=== PATIENT | female | born 1935 | race Caucasian/White ===

== ENCOUNTER → 2017-01-16 | Outpatient (CLI) | payer MEDICARE, BC ==
[~2017-01-16] MED LIST: Gadobutrol 7.5 mMOL/7.5 ML SDV IVPUSH STA
--- NOTE | 2017-01-17 17:46 | MR ---
EXAM DATE: 01/16/17 PATIENT'S AGE: 81 Patient: SARA DUMONT Facility: [place], [place] Site . Site : 1935 Study: MRI Head W/ and W/O Cont [id number]/[id number] 7:05:33 PM Ordering Physician: Sole Gonsalez Final Report: Indication: 81-year-old female. unspecified abnormalities of gait and mobility unspecified urinary incontinence other amnesia Technique: Volumetric 3 plane T1, T2 axial, FLAIR axial, T2 axial, diffusion axial, ADC map axial, susceptibility weighted axial and volumetric 3 plane postcontrast T1 images are acquired. Findings: Susceptibility weighted images are moderate to markedly degraded by patient motion there is no restricted diffusion. There is no pathologic intracranial enhancement. Ventricles and cortical sulci are moderately prominent. Patchy nodular and confluent white matter T2 prolongation is present in both cerebral hemispheres. Patchy T2 prolongation is present in the [place]. Cerebellar hemispheres are unremarkable. Cerebellar tonsils normally are situated. Optic chiasm and pituitary all normal. Paranasal and mastoid air cells are unremarkable. Usual flow void is present in the [place]. Finds of bilateral cataract extraction. Impression: 1. No restricted diffusion, no pathologic intracranial enhancement and no acute intracranial finding. 2. Susceptibility sequences are moderate to markedly degraded by patient motion without convincing pathologic intracranial susceptibility. 3. Moderate atrophy and microvascular ischemic disease. Dictated by Todd Benjamin MD @ Jan 17 2017 5:19PM (Electronic Signature) Report Signed by Proxy and Original Signed Document filed in the Medical Record. [facility]
== END ==
LOC: MW.MRI 16:43
PROVIDERS: ATTEND Psychiatry & Neurology Neuromuscular Medicine
DX: R26.9 Unspecified abnormalities of gait and mobility (principal); R32 Unspecified urinary incontinence; R41.3 Other amnesia; I67.82 Cerebral ischemia
CPT/HCPCS: 70553; A9585

== ENCOUNTER → 2017-02-27 | Outpatient (CLI) | payer MEDICARE, BC | LOC: MW.CHNEURO 08:00 | PROVIDERS: ATTEND Psychiatry & Neurology Neuromuscular Medicine | DX: G25.2 Other specified forms of tremor (principal); R41.3 Other amnesia | CPT/HCPCS: 99214 ==

== ENCOUNTER 2018-10-31 12:26 | Observation (INO) | payer MEDICARE, BC ==
[2018-10-31] MEDS ORDERED: Sodium Chloride 0.9% 2.5 ML Syringe FLUSH PRN (12:31)
[2018-10-31] MEDS ORDERED: Sodium Chloride 0.9% 10 ML Syringe FLUSH PRN (12:31)
[2018-10-31] MEDS ORDERED: Albuterol/Ipratropium 3.0-0.5 MG/3 ML Neb Soln NEB ONE (12:35)
--- NOTE | 2018-10-31 12:43 | EDM.PDOC ---
ED HPI GENERAL MEDICAL PROBLEM - General Chief Complaint: Respiratory Problem Stated Complaint: SOB AND CHEST PAIN Time Seen by Provider: 10/31/18 12:35 Source of Information: Reports: Patient History Limitations: Reports: No Limitations - History of Present Illness INITIAL COMMENTS - FREE TEXT/NARRATIVE: HISTORY AND PHYSICAL: History of present illness: Patient is an 82-year-old female who presents to the emergency room today with complaints of chest pain. She states over the past several days she has had a chest cold with cough and shortness of breath. She does have a history of COPD and uses 4 L per nasal cannula routinely. Today she states that this "chest cold " now feels like a pressure to her mid chest. She denies any fever, chills, increased shortness of breath. Denies any abdominal pain, nausea, vomiting, diarrhea or constipation. Denies the pain radiating, diaphoresis, or reproducible pain. Patient also has a past medical history of type 2 diabetes Review of systems: As per history of present illness and below otherwise all systems reviewed and negative. Past medical history: As per history of present illness and as reviewed below otherwise noncontributory. Surgical history: As per history of present illness and as reviewed below otherwise noncontributory. Social history: See social history for further information Family history: As per history of present illness and as reviewed below otherwise noncontributory. Physical exam: General: Well-developed and well-nourished 82-year-old female. Alert and oriented. Nontoxic appearing and in no acute distress. HEENT: Atraumatic, normocephalic, pupils equal and reactive bilaterally, negative for conjunctival pallor or scleral icterus, mucous membranes moist, TMs normal bilaterally, throat clear, neck supple, nontender, trachea midline. No drooling or trismus noted. No meningeal signs. No hot potato voice noted. Lungs: Poor air exchange throughout with fine expiratory wheezing to the right posterior base, breath sounds equal bilaterally, chest nontender. Heart: S1S2, regular rate and rhythm without overt murmur Abdomen: Soft, nondistended, nontender. Negative for masses or hepatosplenomegaly. Negative for costovertebral tenderness. Pelvis: Stable nontender. Genitourinary: Deferred. Rectal: Deferred. Skin: Intact, warm, dry. No lesions or rashes noted. Extremities: Atraumatic, negative for cords or calf pain. Neurovascular unremarkable. Neuro: Awake, alert, oriented. Cranial nerves II through XII unremarkable. Cerebellum unremarkable. Motor and sensory unremarkable throughout. Exam nonfocal. Notes: EKG shows a normal sinus rhythm with a rate of 92. Unable to compare with any previous EKGs as there are none available. X-ray shows chronic interstitial prominence in the left basilar atelectasis or infiltrate. Diagnostics: CBC, CMP, BNP, troponin, EKG, one view chest, influenza, UC Therapeutics: Saline Lock, Rocephin IV Prescription: None Impression: Chest pain r/o IA Left basilar infiltrate UTI Plan: Observation admission to Med/Surg with telemetry per Dr Rose Definitive disposition and diagnosis as appropriate pending reevaluation and review of above. 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: Musculoskeletal History: Reports: None Neurological History: Reports: None Psychiatric History: Reports: None Endocrine/Metabolic History: Reports: Diabetes, Type II Hematologic History: Reports: None Immunologic History: Reports: None Oncologic (Cancer) History: Reports: None Dermatologic History: Reports: None - Infectious Disease History Infectious Disease History: Reports: Chicken Pox, Measles - Past Surgical History Head Surgeries/Procedures: Reports: None Female Surgical History: Reports: Hysterectomy Social & Family History - Family History Family Medical History: Noncontributory - Tobacco Use Smoking Status *Q: Former Smoker Years of Tobacco use: 40 Packs/Tins Daily: 2 Used Tobacco, but Quit: Yes Month/Year Tobacco Last Used: 17 yr - Caffeine Use Caffeine Use: Reports: None - Recreational Drug Use Recreational Drug Use: No ED ROS GENERAL - Review of Systems Review Of Systems: ROS reveals no pertinent complaints other than HPI. ED EXAM, GENERAL - Physical Exam Exam: See Below (See dictation) Course - Vital Signs Last Recorded V/S: Last Vital Signs Temp 97.9 F 10/31/18 12:29 Pulse 93 10/31/18 12:29 Resp 24 H 10/31/18 12:29 BP 144/65 H 10/31/18 12:29 Pulse Ox 96 10/31/18 12:46 - Orders/Labs/Meds Orders: Active Orders 24 hr Category Date Time Status Admission Status [Patient Status] [ADT] Stat ADT 10/31/18 14:00 Active Cardiac Monitoring [RC] . DIRECTED Care 10/31/18 14:00 Active EKG Documentation Completion [RC] STAT Care 10/31/18 12:31 Active RT Aerosol Therapy [RC] ASDIRECTED Care 10/31/18 12:35 Active CULTURE URINE [RM] Stat Lab 10/31/18 13:25 Received Sodium Chloride 0.9% [Saline Flush] Med 10/31/18 12:31 Active 10 ml FLUSH ASDIRECTED PRN Sodium Chloride 0.9% [Saline Flush] Med 10/31/18 12:31 Active 2.5 ml FLUSH ASDIRECTED PRN cefTRIAXone [Rocephin in Dextrose,Iso-Osm 1 GM/50 ML] 1 Med 10/31/18 13:59 Active gm Premix Bag 1 bag IV ONETIME Saline Lock Insert [OM.PC] Stat Oth 10/31/18 12:31 Ordered Medication Orders Ceftriaxone Sodium/Dextrose 1 (gm/ Premix) 50 mls @ 100 mls/hr IV ONETIME ONE Stop: 10/31/18 14:28 Sodium Chloride (Saline Flush) 10 ml FLUSH ASDIRECTED PRN PRN Reason: Keep Vein Open Sodium Chloride (Saline Flush) 2.5 ml FLUSH ASDIRECTED PRN PRN Reason: Keep Vein Open Labs: Laboratory Tests 10/31/18 10/31/18 10/31/18 Range/Units 12:42 12:42 12:42 WBC 8.12 (4.0-11.0) K/uL RBC 4.02 L (4.30-5.90) M/uL Hgb 12.1 (12.0-16.0) g/dL Hct 38.5 (36.0-46.0) % MCV 95.8 (80.0-98.0) fL MCH 30.1 (27.0-32.0) pg MCHC 31.4 (31.0-37.0) g/dL RDW Std Deviation 51.2 (28.0-62.0) fl RDW Coeff of Fernanda 15 (11.0-15.0) % Plt Count 264 (150-400) K/uL MPV 9.20 (7.40-12.00) fL Neut % (Auto) 63.1 (48.0-80.0) % Lymph % (Auto) 19.6 (16.0-40.0) % [place] % (Auto) 12.6 (0.0-15.0) % Eos % (Auto) 4.2 (0.0-7.0) % Baso % (Auto) 0.5 (0.0-1.5) % Neut # (Auto) 5.1 (1.4-5.7) K/uL Lymph # (Auto) 1.6 (0.6-2.4) K/uL [place] # (Auto) 1.0 H (0.0-0.8) K/uL Eos # (Auto) 0.3 (0.0-0.7) K/uL Baso # (Auto) 0.0 (0.0-0.1) K/uL Nucleated RBC % 0.0 /100WBC Nucleated RBCs # 0 K/uL Sodium 141 (136-145) mmol/L Potassium 4.0 (3.5-5.1) mmol/L Chloride 104 (98-107) mmol/L Carbon Dioxide 31.5 (21.0-32.0) mmol/L BUN 10 (7.0-18.0) mg/dL Creatinine 1.0 (0.6-1.0) mg/dL Est Cr Clr Drug Dosing 39.70 mL/min Estimated GFR (MDRD) 53.2 ml/min Glucose 137 H (74-106) mg/dL Calcium 9.4 (8.5-10.1) mg/dL Total Bilirubin 0.4 (0.2-1.0) mg/dL AST 17 (15-37) IU/L ALT 15 (14-63) IU/L Alkaline Phosphatase 106 (46-116) U/L Troponin I < 0.050 (0.000-0.056) ng/mL B-Natriuretic Peptide 13 (<100) PG/ML Total Protein 7.5 (6.4-8.2) g/dL Albumin 3.2 L (3.4-5.0) g/dL Globulin 4.3 H (2.6-4.0) g/dL Albumin/Globulin Ratio 0.7 L (0.9-1.6) Urine Color Urine Appearance Urine pH (5.0-8.0) Ur Specific [place] (1.001-1.035) Urine Protein (NEGATIVE) mg/dL Urine Glucose (UA) (NEGATIVE) mg/dL Urine Ketones (NEGATIVE) mg/dL Urine Occult Blood (NEGATIVE) Urine Nitrite (NEGATIVE) Urine Bilirubin (NEGATIVE) Urine Urobilinogen (<2.0) EU/dL Ur Leukocyte Esterase (NEGATIVE) Urine RBC (0-2/HPF) Urine WBC (0-5/HPF) Ur Epithelial Cells (NONE-FEW) Amorphous Sediment (NEGATIVE) Urine Bacteria (NEGATIVE) Urine Mucus (NONE-MOD) 10/31/18 Range/Units 13:25 WBC (4.0-11.0) K/uL RBC (4.30-5.90) M/uL Hgb (12.0-16.0) g/dL Hct (36.0-46.0) % MCV (80.0-98.0) fL MCH (27.0-32.0) pg MCHC (31.0-37.0) g/dL RDW Std Deviation (28.0-62.0) fl RDW Coeff of Fernanda (11.0-15.0) % Plt Count (150-400) K/uL MPV (7.40-12.00) fL Neut % (Auto) (48.0-80.0) % Lymph % (Auto) (16.0-40.0) % [place] % (Auto) (0.0-15.0) % Eos % (Auto) (0.0-7.0) % Baso % (Auto) (0.0-1.5) % Neut # (Auto) (1.4-5.7) K/uL Lymph # (Auto) (0.6-2.4) K/uL [place] # (Auto) (0.0-0.8) K/uL Eos # (Auto) (0.0-0.7) K/uL Baso # (Auto) (0.0-0.1) K/uL Nucleated RBC % /100WBC Nucleated RBCs # K/uL Sodium (136-145) mmol/L Potassium (3.5-5.1) mmol/L Chloride (98-107) mmol/L Carbon Dioxide (21.0-32.0) mmol/L BUN (7.0-18.0) mg/dL Creatinine (0.6-1.0) mg/dL Est Cr Clr Drug Dosing mL/min Estimated GFR (MDRD) ml/min Glucose (74-106) mg/dL Calcium (8.5-10.1) mg/dL Total Bilirubin (0.2-1.0) mg/dL AST (15-37) IU/L ALT (14-63) IU/L Alkaline Phosphatase (46-116) U/L Troponin I (0.000-0.056) ng/mL B-Natriuretic Peptide (<100) PG/ML Total Protein (6.4-8.2) g/dL Albumin (3.4-5.0) g/dL Globulin (2.6-4.0) g/dL Albumin/Globulin Ratio (0.9-1.6) Urine Color YELLOW Urine Appearance SLT CLOUDY Urine pH 7.0 (5.0-8.0) Ur Specific [place] 1.010 (1.001-1.035) Urine Protein NEGATIVE (NEGATIVE) mg/dL Urine Glucose (UA) NEGATIVE (NEGATIVE) mg/dL Urine Ketones NEGATIVE (NEGATIVE) mg/dL Urine Occult Blood TRACE-INTACT H (NEGATIVE) Urine Nitrite POSITIVE H (NEGATIVE) Urine Bilirubin NEGATIVE (NEGATIVE) Urine Urobilinogen 0.2 (<2.0) EU/dL Ur Leukocyte Esterase LARGE H (NEGATIVE) Urine RBC 1-2 (0-2/HPF) Urine WBC 35-42 (0-5/HPF) Ur Epithelial Cells FEW (NONE-FEW) Amorphous Sediment FEW (NEGATIVE) Urine Bacteria 2+ H (NEGATIVE) Urine Mucus FEW (NONE-MOD) Meds: Medications Generic Name Dose Route Start Last Admin Trade Name Freq PRN Reason Stop Dose Admin Ceftriaxone Sodium/Dextrose 1 50 mls @ 100 mls/hr 10/31/18 13:59 gm/ Premix IV 10/31/18 14:28 ONETIME ONE Sodium Chloride 10 ml 10/31/18 12:31 Saline Flush FLUSH ASDIRECTED PRN Keep Vein Open Sodium Chloride 2.5 ml 10/31/18 12:31 Saline Flush FLUSH ASDIRECTED PRN Keep Vein Open Discontinued Medications Generic Name Dose Route Start Last Admin Trade Name Freq PRN Reason Stop Dose Admin Albuterol/Ipratropium 3 ml 10/31/18 12:35 10/31/18 12:45 Duoneb 3.0-0.5 Mg/3 Ml NEB 10/31/18 12:36 3 ml ONETIME ONE Administration Departure - Departure Time of Disposition: 14:15 Disposition: Refer to Observation Clinical Impression: Chest pain, rule out acute myocardial infarction, Infiltrate of left lung present on chest x-ray Urinary tract infection Qualifiers: Urinary tract infection type: acute cystitis Hematuria presence: without hematuria Qualified Code(s): N30.00 - Acute cystitis without hematuria - Discharge Information Referrals: Willam Hines MD [Primary Care Provider] - Forms: ED Department Discharge - My Orders Last 24 Hours: My Active Orders 10/31/18 12:31 EKG Documentation Completion [RC] STAT Sodium Chloride 0.9% [Saline Flush] 10 ml FLUSH ASDIRECTED PRN Sodium Chloride 0.9% [Saline Flush] 2.5 ml FLUSH ASDIRECTED PRN Saline Lock Insert [OM.PC] Stat 10/31/18 12:35 RT Aerosol Therapy [RC] ASDIRECTED 10/31/18 13:25 CULTURE URINE [RM] Stat 10/31/18 13:59 cefTRIAXone [Rocephin in Dextrose,Iso-Osm 1 GM/50 ML] 1 gm Premix Bag 1 bag IV ONETIME 10/31/18 14:00 Admission Status [Patient Status] [ADT] Stat Cardiac Monitoring [RC] . DIRECTED - Assessment/Plan Last 24 Hours: My Active Orders 10/31/18 12:31 EKG Documentation Completion [RC] STAT Sodium Chloride 0.9% [Saline Flush] 10 ml FLUSH ASDIRECTED PRN Sodium Chloride 0.9% [Saline Flush] 2.5 ml FLUSH ASDIRECTED PRN Saline Lock Insert [OM.PC] Stat 10/31/18 12:35 RT Aerosol Therapy [RC] ASDIRECTED 10/31/18 13:25 CULTURE URINE [RM] Stat 10/31/18 13:59 cefTRIAXone [Rocephin in Dextrose,Iso-Osm 1 GM/50 ML] 1 gm Premix Bag 1 bag IV ONETIME 10/31/18 14:00 Admission Status [Patient Status] [ADT] Stat Cardiac Monitoring [RC] . DIRECTED
[2018-10-31 13:34] LABS: CHLORIDE,CL 104 mmol/L (98-107); SODIUM,NA 141 mmol/L (136-145)
--- NOTE | 2018-10-31 13:39 | CR ---
EXAMINATION: Portable chest radiograph. HISTORY: Chest pain. FINDINGS: The trachea is midline. The cardiomediastinal silhouette is within normal limits. There is a moderate interstitial prominence. Mild left basilar infiltrate and/or atelectasis without a significant pleural effusion. No pneumothorax. Osseous structures appear unremarkable. IMPRESSION: 1. Chronic interstitial prominence and left basilar atelectasis and/or infiltrate.
[2018-10-31] MEDS ORDERED: cefTRIAXone 1 GM in Premix Bag 1 BAG IV ONE (13:59)
[2018-10-31] MEDS ORDERED: Acetaminophen 325 MG Tab PO PRN (15:20)
[2018-10-31] MEDS ORDERED: Ondansetron 4 MG/2 ML SDV IVPUSH PRN (15:20)
[2018-10-31] MEDS ORDERED: Azithromycin 250 MG Tab PO SCH (15:30)
--- NOTE | 2018-10-31 15:30 | PCM.HP ---
<Bita Harvey M - Last Filed: 10/31/18 15:59> H&P History of Present Illness - General Date of Service: 10/31/18 Admit Problem/Dx: Admission Diagnosis/Problem Admission Diagnosis/Problem Chest pain, rule out acute myocardial infarction Source of Information: Patient History Limitations: Reports: No Limitations - History of Present Illness Initial Comments - Free Text/Narative: THis 82 year old female with pmh of HTN, DM type 2, COPD, oxygen dependent, depression and CHF presented to the ED with concerns of chest pressure which started initially on Sunday. She has a cold and felti t was related to the cold so she didn't do much. She reports it continued and felt she should be evaluated. She denies radiation of the pain, feels like it was center of her chest. Denies worsening shortness of breath diaphoresis or nausea. She reports not feeling well with hot flashes and chills at home, no tested temperatures. Reports cough, but non productive. No increase in oxygen requirements, normally on 4 L NC. No abdominal pain, diarrhea, constipation or urinary symptoms. She reports she is incontinent of urine, which is baseline over the last couple years and wears a brief. She denies current tobacco use, quit 20 years ago, no alcohol use and no recreational drug use. In the ED labwork WNL. UA revealed UTI, UC pending. Influenza negative. CXR reveals chronic interstitial prominence and left basilar atelectasis and or infiltrate. Troponin negative. EKG revealed SR with no acute ST changes. She will be admitted for atypical chest pain, UTI and CAP. PCP Dr Hines. - Related Data Allergies/Adverse Reactions: Allergies Allergy/AdvReac Type Severity Reaction Status Date / Time No Known Allergies Allergy Verified 10/31/18 12:29 Home Medications: Home Meds Albuterol/Ipratropium [DuoNeb 3.0-0.5 MG/3 ML] 3 ml INH Q6H PRN 10/31/18 [ History] Budesonide/Formoterol Fumarate [Symbicort 160-4.5 Mcg Inhaler] 2 puff IH BID [History] Calcium Carbonate/Vitamin D3 [Calcium 250+D] 1 each PO DAILY 10/31/18 [History] Cholecalciferol (Vitamin D3) [Vitamin D3] 5,000 unit PO DAILY 10/31/18 [History] Furosemide 40 mg PO BID@0800,1400 10/31/18 [History] Latanoprost 1 drop OP BEDTIME 10/31/18 [History] Metoprolol Succinate 50 mg PO DAILY 10/31/18 [History] OLANZapine [Olanzapine] 5 mg PO BEDTIME 10/31/18 [History] Potassium Chloride [Klor-Con M20] 20 meq PO BIDMEALS 10/31/18 [History] Sertraline [Zoloft] 150 mg PO DAILY 10/31/18 [History] Simvastatin [Zocor] 20 mg PO BEDTIME 10/31/18 [History] Vit A/Vit C/Vit E/Zinc/Copper [Preservision] 1 each PO BID 10/31/18 [History] metFORMIN [Glucophage] 1,000 mg PO BIDMEALS 10/31/18 [History] predniSONE [Prednisone] 2.5 mg PO BIDMEALS 10/31/18 [History] traZODone HCl [Trazodone HCl] 50 mg PO BEDTIME 10/31/18 [History] Cefdinir 300 mg PO BID #20 capsule 11/01/18 [Rx] Past Medical History HEENT History: Reports: Impaired Vision Cardiovascular History: Reports: High Cholesterol, Hypertension, SOB on Exertion. Denies: Afib, Blood Clots/VTE/DVT, CAD, GA, Pulmonary Hypertension Respiratory History: Reports: COPD, Other (See Below) (oxygen dependent, 4 L NC) Gastrointestinal History: Reports: None. Denies: GERD, GI Bleed Genitourinary History: Reports: Urinary Incontinence. Denies: Chronic Renal Insuffiency MANAGER AEROSPACE History: Reports: Musculoskeletal History: Reports: None Neurological History: Reports: None. Denies: CVA, TIA Psychiatric History: Reports: Depression Endocrine/Metabolic History: Reports: Diabetes, Type II, Obesity/BMI 30+ Hematologic History: Reports: None Immunologic History: Reports: None Oncologic (Cancer) History: Reports: None Dermatologic History: Reports: None - Infectious Disease History Infectious Disease History: Reports: Chicken Pox, Measles - Past Surgical History Head Surgeries/Procedures: Reports: None Female Surgical History: Reports: Hysterectomy Social & Family History - Family History Family Medical History: Noncontributory - Tobacco Use Smoking Status *Q: Former Smoker Years of Tobacco use: 40 Packs/Tins Daily: 2 Used Tobacco, but Quit: Yes Month/Year Tobacco Last Used: 17 yr - Caffeine Use Caffeine Use: Reports: None - Recreational Drug Use Recreational Drug Use: No - Living Situation & Occupation Occupation: Retired H&P Review of Systems - Review of Systems: Review Of Systems: See Below General: Reports: Fever, Chills, Malaise, Fatigue HEENT: Reports: Sinus Congestion. Denies: Headaches, Hearing Changes, Visual Changes Pulmonary: Reports: Shortness of Breath, Cough, Sputum. Denies: Hemoptysis Cardiovascular: Reports: Chest Pain (no longer there), Dyspnea on Exertion. Denies: Lightheadedness, Syncope Gastrointestinal: Reports: No Symptoms. Denies: Abdominal Pain, Black Stool, Bloody Stool, Nausea, Vomiting Genitourinary: Reports: Incontinence (not a new finding). Denies: Dysuria, Frequency, Pain, Urgency Musculoskeletal: Reports: No Symptoms Skin: Reports: No Symptoms Psychiatric: Reports: No Symptoms Neurological: Reports: No Symptoms. Denies: Confusion Hematologic/Lymphatic: Reports: No Symptoms Immunologic: Reports: No Symptoms Exam - Exam Exam: See Below - Vital Signs Vital Signs: Last Vital Signs Temp 97.9 F 10/31/18 15:25 Pulse 90 10/31/18 15:25 Resp 24 H 10/31/18 15:25 BP 114/63 10/31/18 15:25 Pulse Ox 95 10/31/18 15:25 Weight: 99.79 kg - Exam Quality Assessment: Supplemental Oxygen General: Alert, Oriented, Cooperative HEENT: Conjunctiva Clear, Mucosa Moist & [place], Posterior Pharynx Clear Neck: Supple, Trachea Midline Lungs: Normal Respiratory Effort, Wheezing Cardiovascular: Regular Rate, Regular Rhythm GI/Abdominal Exam: Normal Bowel Sounds, Soft, Non-Tender Extremities: Normal Inspection, Normal Range of Motion, Pedal Edema (+2 edema BLE) Neuro Extensive - Mental Status: Alert, Oriented x3, Normal Mood/Affect Neuro Extensive - Motor, Sensory, Reflexes: CN II-XII Intact Psychiatric: Alert, Normal Affect, Normal Mood - Patient Data Lab Results Last 24 hrs: Laboratory Results - last 24 hr 10/31/18 10/31/18 10/31/18 Range/Units 12:42 12:42 12:42 WBC 8.12 (4.0-11.0) K/uL RBC 4.02 L (4.30-5.90) M/uL Hgb 12.1 (12.0-16.0) g/dL Hct 38.5 (36.0-46.0) % MCV 95.8 (80.0-98.0) fL MCH 30.1 (27.0-32.0) pg MCHC 31.4 (31.0-37.0) g/dL RDW Std Deviation 51.2 (28.0-62.0) fl RDW Coeff of Fernanda 15 (11.0-15.0) % Plt Count 264 (150-400) K/uL MPV 9.20 (7.40-12.00) fL Neut % (Auto) 63.1 (48.0-80.0) % Lymph % (Auto) 19.6 (16.0-40.0) % [place] % (Auto) 12.6 (0.0-15.0) % Eos % (Auto) 4.2 (0.0-7.0) % Baso % (Auto) 0.5 (0.0-1.5) % Neut # (Auto) 5.1 (1.4-5.7) K/uL Lymph # (Auto) 1.6 (0.6-2.4) K/uL [place] # (Auto) 1.0 H (0.0-0.8) K/uL Eos # (Auto) 0.3 (0.0-0.7) K/uL Baso # (Auto) 0.0 (0.0-0.1) K/uL Nucleated RBC % 0.0 /100WBC Nucleated RBCs # 0 K/uL Sodium 141 (136-145) mmol/L Potassium 4.0 (3.5-5.1) mmol/L Chloride 104 (98-107) mmol/L Carbon Dioxide 31.5 (21.0-32.0) mmol/L BUN 10 (7.0-18.0) mg/dL Creatinine 1.0 (0.6-1.0) mg/dL Est Cr Clr Drug Dosing 39.70 mL/min Estimated GFR (MDRD) 53.2 ml/min Glucose 137 H (74-106) mg/dL Calcium 9.4 (8.5-10.1) mg/dL Total Bilirubin 0.4 (0.2-1.0) mg/dL AST 17 (15-37) IU/L ALT 15 (14-63) IU/L Alkaline Phosphatase 106 (46-116) U/L Troponin I < 0.050 (0.000-0.056) ng/mL B-Natriuretic Peptide 13 (<100) PG/ML Total Protein 7.5 (6.4-8.2) g/dL Albumin 3.2 L (3.4-5.0) g/dL Globulin 4.3 H (2.6-4.0) g/dL Albumin/Globulin Ratio 0.7 L (0.9-1.6) Urine Color Urine Appearance Urine pH (5.0-8.0) Ur Specific [place] (1.001-1.035) Urine Protein (NEGATIVE) mg/dL Urine Glucose (UA) (NEGATIVE) mg/dL Urine Ketones (NEGATIVE) mg/dL Urine Occult Blood (NEGATIVE) Urine Nitrite (NEGATIVE) Urine Bilirubin (NEGATIVE) Urine Urobilinogen (<2.0) EU/dL Ur Leukocyte Esterase (NEGATIVE) Urine RBC (0-2/HPF) Urine WBC (0-5/HPF) Ur Epithelial Cells (NONE-FEW) Amorphous Sediment (NEGATIVE) Urine Bacteria (NEGATIVE) Urine Mucus (NONE-MOD) 10/31/18 Range/Units 13:25 WBC (4.0-11.0) K/uL RBC (4.30-5.90) M/uL Hgb (12.0-16.0) g/dL Hct (36.0-46.0) % MCV (80.0-98.0) fL MCH (27.0-32.0) pg MCHC (31.0-37.0) g/dL RDW Std Deviation (28.0-62.0) fl RDW Coeff of Fernanda (11.0-15.0) % Plt Count (150-400) K/uL MPV (7.40-12.00) fL Neut % (Auto) (48.0-80.0) % Lymph % (Auto) (16.0-40.0) % [place] % (Auto) (0.0-15.0) % Eos % (Auto) (0.0-7.0) % Baso % (Auto) (0.0-1.5) % Neut # (Auto) (1.4-5.7) K/uL Lymph # (Auto) (0.6-2.4) K/uL [place] # (Auto) (0.0-0.8) K/uL Eos # (Auto) (0.0-0.7) K/uL Baso # (Auto) (0.0-0.1) K/uL Nucleated RBC % /100WBC Nucleated RBCs # K/uL Sodium (136-145) mmol/L Potassium (3.5-5.1) mmol/L Chloride (98-107) mmol/L Carbon Dioxide (21.0-32.0) mmol/L BUN (7.0-18.0) mg/dL Creatinine (0.6-1.0) mg/dL Est Cr Clr Drug Dosing mL/min Estimated GFR (MDRD) ml/min Glucose (74-106) mg/dL Calcium (8.5-10.1) mg/dL Total Bilirubin (0.2-1.0) mg/dL AST (15-37) IU/L ALT (14-63) IU/L Alkaline Phosphatase (46-116) U/L Troponin I (0.000-0.056) ng/mL B-Natriuretic Peptide (<100) PG/ML Total Protein (6.4-8.2) g/dL Albumin (3.4-5.0) g/dL Globulin (2.6-4.0) g/dL Albumin/Globulin Ratio (0.9-1.6) Urine Color YELLOW Urine Appearance SLT CLOUDY Urine pH 7.0 (5.0-8.0) Ur Specific [place] 1.010 (1.001-1.035) Urine Protein NEGATIVE (NEGATIVE) mg/dL Urine Glucose (UA) NEGATIVE (NEGATIVE) mg/dL Urine Ketones NEGATIVE (NEGATIVE) mg/dL Urine Occult Blood TRACE-INTACT H (NEGATIVE) Urine Nitrite POSITIVE H (NEGATIVE) Urine Bilirubin NEGATIVE (NEGATIVE) Urine Urobilinogen 0.2 (<2.0) EU/dL Ur Leukocyte Esterase LARGE H (NEGATIVE) Urine RBC 1-2 (0-2/HPF) Urine WBC 35-42 (0-5/HPF) Ur Epithelial Cells FEW (NONE-FEW) Amorphous Sediment FEW (NEGATIVE) Urine Bacteria 2+ H (NEGATIVE) Urine Mucus FEW (NONE-MOD) Result Diagrams: 10/31/18 12:42 10/31/18 12:42 [place] Results Last 24 hrs: Microbiology 10/31/18 13:21 Influenza Type A Antigen Screen - Final Nasopharyngeal Swab NEGATIVE INFLUENZA A VIRUS AG Influenza Type B Antigen Screen - Final NEGATIVE INFLUENZA B VIRUS AG *Q Meaningful Use (ADM) - VTE Risk Assess *Q Each Risk Factor Represents 1 Point: Swollen Legs, Current, Obesity ( BMI > 25 kg/m2), Congestive heart failure (CHF), Serious lung disease including pneumonia , Abnormal Pulmonary Function (COPD) Total Score 1 Point Risk Factors: 5 Each Risk Factor Represents 2 Points: None Total Score 2 Point Risk Factors: 0 Each Risk Factor Represents 3 Points: Age 75 Years or Greater Total Score 3 Point Risk Factors: 3 Each Risk Factor Represents 5 Points: None Total Score 5 Point Risk Factors: 0 Venous Thromboembolism Risk Factor Score *Q: 8 - Problem List (1) Chest pain, rule out acute myocardial infarction SNOMED Code(s): 48957909 ICD Code: R07.9 - CHEST PAIN, UNSPECIFIED Status: Acute Current Visit: Yes (2) Urinary tract infection SNOMED Code(s): 75724030 ICD Code: N39.0 - URINARY TRACT INFECTION, SITE NOT SPECIFIED Status: Acute Current Visit: Yes Qualifiers: Urinary tract infection type: acute cystitis Hematuria presence: without hematuria Qualified Code(s): N30.00 - Acute cystitis without hematuria (3) CAP (community acquired pneumonia) SNOMED Code(s): 948301314 ICD Code: J18.9 - PNEUMONIA, UNSPECIFIED ORGANISM Status: Acute Current Visit: Yes (4) COPD (chronic obstructive pulmonary disease) SNOMED Code(s): 42821085 ICD Code: J44.9 - CHRONIC OBSTRUCTIVE PULMONARY DISEASE, UNSPECIFIED Status : Chronic Current Visit: Yes (5) DM type 2 (diabetes mellitus, type 2) SNOMED Code(s): 08214541 ICD Code: E11.9 - TYPE 2 DIABETES MELLITUS WITHOUT COMPLICATIONS Status: Chronic Current Visit: Yes Qualifiers: Diabetes mellitus senior living insulin use: without long term care administrator use Diabetes mellitus complication status: without complication Qualified Code(s): E11.9 - Type 2 diabetes mellitus without complications (6) CHF (congestive heart failure) SNOMED Code(s): 25826200 ICD Code: I50.9 - HEART FAILURE, UNSPECIFIED Status: Chronic Current Visit: Yes Qualifiers: Heart failure type: unspecified Heart failure chronicity: chronic Qualified Code(s): I50.9 - Heart failure, unspecified (7) Depression SNOMED Code(s): 19206875 ICD Code: F32.9 - MAJOR DEPRESSIVE DISORDER, SINGLE EPISODE, UNSPECIFIED Status: Chronic Current Visit: Yes (8) Hyperlipidemia SNOMED Code(s): 02899438 ICD Code: E78.5 - HYPERLIPIDEMIA, UNSPECIFIED Status: Chronic Current Visit: Yes (9) Oxygen dependent SNOMED Code(s): 709289935183 ICD Code: Z99.81 - DEPENDENCE ON SUPPLEMENTAL OXYGEN Status: Chronic Current Visit: Yes Problem List Initiated/Reviewed/Updated: Yes Orders Last 24hrs: Active Orders 24 hr Category Date Time Status Admission Status [Patient Status] [ADT] Stat ADT 10/31/18 14:00 Active Cardiac Monitoring [RC] . DIRECTED Care 10/31/18 14:00 Active EKG Documentation Completion [RC] STAT Care 10/31/18 12:31 Active Intake and Output [RC] QSHIFT Care 10/31/18 15:21 Ordered Oxygen Therapy [RC] PRN Care 10/31/18 15:20 Ordered RT Aerosol Therapy [RC] ASDIRECTED Care 10/31/18 12:35 Active RT Aerosol Therapy [RC] ASDIRECTED Care 10/31/18 15:22 Ordered Telemetry Monitoring [Cardiac Monitoring] [RC] . Care 10/31/18 15:28 Ordered DIRECTED Up With Assistance [RC] ASDIRECTED Care 10/31/18 15:20 Ordered VTE/DVT Education [RC] PER UNIT ROUTINE Care 10/31/18 15:20 Ordered Vital Signs [RC] Q4H Care 10/31/18 15:20 Ordered Consistent Carbohydrate Diet [DIET] Diet 10/31/18 Lunch Ordered BASIC METABOLIC PANEL,BMP [CHEM] AM Lab 11/01/18 05:11 Ordered CBC WITH AUTO DIFF [HEME] AM Lab 11/01/18 05:11 Ordered CULTURE SPUTUM + SMEAR [RM] Stat Lab 10/31/18 15:20 Ordered CULTURE URINE [RM] Stat Lab 10/31/18 13:25 Received GLYCOSYLATED HEMOGLOBIN,HGBA1C [CHEM] Routine Lab 10/31/18 15:29 Ordered LIPID PANEL [CHEM] AM Lab 11/01/18 05:11 Ordered TROPONIN I [CHEM] Q6H Lab 10/31/18 18:45 Ordered TROPONIN I [CHEM] Q6H Lab 11/01/18 00:45 Ordered Acetaminophen [Tylenol] Med 10/31/18 15:20 Ordered 650 mg PO Q4H PRN Albuterol/Ipratropium [DuoNeb 3.0-0.5 MG/3 ML] Med 10/31/18 18:00 Ordered 3 ml NEB Q4HRRT Azithromycin [Zithromax] Med 10/31/18 15:30 Ordered 500 mg PO Q24H Heparin Sodium Med 10/31/18 15:30 Ordered 5,000 units SUBCUT Q12H Insulin Aspart [NovoLOG] Med 10/31/18 17:00 Ordered See Protocol SUBCUT TIDAC Ondansetron [Zofran] Med 10/31/18 15:20 Ordered 4 mg IVPUSH Q4H PRN Sodium Chloride 0.9% [Saline Flush] Med 10/31/18 12:31 Active 10 ml FLUSH ASDIRECTED PRN Sodium Chloride 0.9% [Saline Flush] Med 10/31/18 12:31 Active 2.5 ml FLUSH ASDIRECTED PRN cefTRIAXone [Rocephin in Dextrose,Iso-Osm 1 GM/50 ML] 1 Med 11/01/18 13:00 Ordered gm Premix Bag 1 bag IV Q24H Saline Lock Insert [OM.PC] Stat Oth 10/31/18 12:31 Ordered Resuscitation Status Routine Resus Stat 10/31/18 15:20 Ordered Medication Orders Acetaminophen (Tylenol) 650 mg PO Q4H PRN PRN Reason: Pain (Mild 1-3)/fever Albuterol/Ipratropium (Duoneb 3.0-0.5 Mg/3 Ml) 3 ml NEB Q4HRRT TEJAL Azithromycin (Zithromax) 500 mg PO Q24H TEJAL Heparin Sodium (Porcine) (Heparin Sodium) 5,000 units SUBCUT Q12H TEJAL Ceftriaxone Sodium/Dextrose 1 (gm/ Premix) 50 mls @ 100 mls/hr IV Q24H TEJAL Insulin Aspart (Novolog) 0 unit SUBCUT TIDAC TEJAL; Protocol Ondansetron HCl (Zofran) 4 mg IVPUSH Q4H PRN PRN Reason: Nausea Sodium Chloride (Saline Flush) 10 ml FLUSH ASDIRECTED PRN PRN Reason: Keep Vein Open Sodium Chloride (Saline Flush) 2.5 ml FLUSH ASDIRECTED PRN PRN Reason: Keep Vein Open Assessment/Plan Comment:: THis 82 year old female admitted with atypical chest pain, UTI and CAP 1. Atypical chest pain: Will monitor on telemetry. Trend troponins. Will monitor Lipid panel and A1c. Pain is likely related to URI and pneumonia 2. UTI: UC pending. Continue Rocephin. 3. CAP: Sputum culture pending if able to obtain. Add Azithromycin to Rocephin. Duonebs scheduled 4. COPD: Stable, no exacerbation suspected, no excessive wheezing and no increase in oxygen requirement. Continue Oxygen at 4 l NC as per home. Continue Symbicort. 5. HTN/CHF: Continue Metoprolol and Lasix. Both stable at this time. 6. DM Type 2: Hold Metformin. Novolog SSI with meals. VTE prophylaxis: Heparin Q12hr Dispo: 1 day <Rishi Rose - Last Filed: 11/01/18 10:32> H&P History of Present Illness - General Admit Problem/Dx: Admission Diagnosis/Problem Admission Diagnosis/Problem Chest pain, rule out acute myocardial infarction I have examined the patient independently of Bita Harvey CNP. I have discussed the case with her. I agree with the assessment and plan of care for this patient as outlined by her. Please see orders. Chest Pain Score (Numeric/FACES): 0 Exam - Vital Signs Vital Signs: Last Vital Signs Temp 36.8 C 11/01/18 08:17 Pulse 101 H 11/01/18 08:17 Resp 18 11/01/18 08:17 BP 120/60 11/01/18 08:17 Pulse Ox 93 L 11/01/18 08:17 - Patient Data Lab Results Last 24 hrs: Laboratory Results - last 24 hr 10/31/18 10/31/18 10/31/18 Range/Units 12:42 12:42 12:42 WBC 8.12 (4.0-11.0) K/uL RBC 4.02 L (4.30-5.90) M/uL Hgb 12.1 (12.0-16.0) g/dL Hct 38.5 (36.0-46.0) % MCV 95.8 (80.0-98.0) fL MCH 30.1 (27.0-32.0) pg MCHC 31.4 (31.0-37.0) g/dL RDW Std Deviation 51.2 (28.0-62.0) fl RDW Coeff of Fernanda 15 (11.0-15.0) % Plt Count 264 (150-400) K/uL MPV 9.20 (7.40-12.00) fL Neut % (Auto) 63.1 (48.0-80.0) % Lymph % (Auto) 19.6 (16.0-40.0) % [place] % (Auto) 12.6 (0.0-15.0) % Eos % (Auto) 4.2 (0.0-7.0) % Baso % (Auto) 0.5 (0.0-1.5) % Neut # (Auto) 5.1 (1.4-5.7) K/uL Lymph # (Auto) 1.6 (0.6-2.4) K/uL [place] # (Auto) 1.0 H (0.0-0.8) K/uL Eos # (Auto) 0.3 (0.0-0.7) K/uL Baso # (Auto) 0.0 (0.0-0.1) K/uL Nucleated RBC % 0.0 /100WBC Nucleated RBCs # 0 K/uL Sodium 141 (136-145) mmol/L Potassium 4.0 (3.5-5.1) mmol/L Chloride 104 (98-107) mmol/L Carbon Dioxide 31.5 (21.0-32.0) mmol/L BUN 10 (7.0-18.0) mg/dL Creatinine 1.0 (0.6-1.0) mg/dL Est Cr Clr Drug Dosing 39.70 mL/min Estimated GFR (MDRD) 53.2 ml/min Glucose 137 H (74-106) mg/dL POC Glucose (60-110) mg/dL Hemoglobin A1c (4.5-6.2) % Calcium 9.4 (8.5-10.1) mg/dL Total Bilirubin 0.4 (0.2-1.0) mg/dL AST 17 (15-37) IU/L ALT 15 (14-63) IU/L Alkaline Phosphatase 106 (46-116) U/L Troponin I < 0.050 (0.000-0.056) ng/mL B-Natriuretic Peptide 13 (<100) PG/ML Total Protein 7.5 (6.4-8.2) g/dL Albumin 3.2 L (3.4-5.0) g/dL Globulin 4.3 H (2.6-4.0) g/dL Albumin/Globulin Ratio 0.7 L (0.9-1.6) Triglycerides (0-200) mg/dL Cholesterol (50-200) mg/dL LDL Cholesterol, Calc (60-180) mg/dL VLDL Cholesterol (5-55) mg/dL HDL Cholesterol (40-60) mg/dL Cholesterol/HDL Ratio (3.3-6.0) Urine Color Urine Appearance Urine pH (5.0-8.0) Ur Specific [place] (1.001-1.035) Urine Protein (NEGATIVE) mg/dL Urine Glucose (UA) (NEGATIVE) mg/dL Urine Ketones (NEGATIVE) mg/dL Urine Occult Blood (NEGATIVE) Urine Nitrite (NEGATIVE) Urine Bilirubin (NEGATIVE) Urine Urobilinogen (<2.0) EU/dL Ur Leukocyte Esterase (NEGATIVE) Urine RBC (0-2/HPF) Urine WBC (0-5/HPF) Ur Epithelial Cells (NONE-FEW) Amorphous Sediment (NEGATIVE) Urine Bacteria (NEGATIVE) Urine Mucus (NONE-MOD) 10/31/18 10/31/18 10/31/18 Range/Units 13:25 15:29 16:48 WBC (4.0-11.0) K/uL RBC (4.30-5.90) M/uL Hgb (12.0-16.0) g/dL Hct (36.0-46.0) % MCV (80.0-98.0) fL MCH (27.0-32.0) pg MCHC (31.0-37.0) g/dL RDW Std Deviation (28.0-62.0) fl RDW Coeff of [place]anda (11.0-15.0) % Plt Count (150-400) K/uL MPV (7.40-12.00) fL Neut % (Auto) (48.0-80.0) % Lymph % (Auto) (16.0-40.0) % [place] % (Auto) (0.0-15.0) % Eos % (Auto) (0.0-7.0) % Baso % (Auto) (0.0-1.5) % Neut # (Auto) (1.4-5.7) K/uL Lymph # (Auto) (0.6-2.4) K/uL [place] # (Auto) (0.0-0.8) K/uL Eos # (Auto) (0.0-0.7) K/uL Baso # (Auto) (0.0-0.1) K/uL Nucleated RBC % /100WBC Nucleated RBCs # K/uL Sodium (136-145) mmol/L Potassium (3.5-5.1) mmol/L Chloride (98-107) mmol/L Carbon Dioxide (21.0-32.0) mmol/L BUN (7.0-18.0) mg/dL Creatinine (0.6-1.0) mg/dL Est Cr Clr Drug Dosing mL/min Estimated GFR (MDRD) ml/min Glucose (74-106) mg/dL POC Glucose (60-110) mg/dL Hemoglobin A1c 7.4 H (4.5-6.2) % Calcium (8.5-10.1) mg/dL Total Bilirubin (0.2-1.0) mg/dL AST (15-37) IU/L ALT (14-63) IU/L Alkaline Phosphatase (46-116) U/L Troponin I < 0.050 (0.000-0.056) ng/mL B-Natriuretic Peptide (<100) PG/ML Total Protein (6.4-8.2) g/dL Albumin (3.4-5.0) g/dL Globulin (2.6-4.0) g/dL Albumin/Globulin Ratio (0.9-1.6) Triglycerides (0-200) mg/dL Cholesterol (50-200) mg/dL LDL Cholesterol, Calc (60-180) mg/dL VLDL Cholesterol (5-55) mg/dL HDL Cholesterol (40-60) mg/dL Cholesterol/HDL Ratio (3.3-6.0) Urine Color YELLOW Urine Appearance SLT CLOUDY Urine pH 7.0 (5.0-8.0) Ur Specific [place] 1.010 (1.001-1.035) Urine Protein NEGATIVE (NEGATIVE) mg/dL Urine Glucose (UA) NEGATIVE (NEGATIVE) mg/dL Urine Ketones NEGATIVE (NEGATIVE) mg/dL Urine Occult Blood TRACE-INTACT H (NEGATIVE) Urine Nitrite POSITIVE H (NEGATIVE) Urine Bilirubin NEGATIVE (NEGATIVE) Urine Urobilinogen 0.2 (<2.0) EU/dL Ur Leukocyte Esterase LARGE H (NEGATIVE) Urine RBC 1-2 (0-2/HPF) Urine WBC 35-42 (0-5/HPF) Ur Epithelial Cells FEW (NONE-FEW) Amorphous Sediment FEW (NEGATIVE) Urine Bacteria 2+ H (NEGATIVE) Urine Mucus FEW (NONE-MOD) 10/31/18 11/01/18 11/01/18 Range/Units 17:32 01:00 04:55 WBC 8.99 (4.0-11.0) K/uL RBC 3.92 L (4.30-5.90) M/uL Hgb 11.9 L (12.0-16.0) g/dL Hct 37.6 (36.0-46.0) % MCV 95.9 (80.0-98.0) fL MCH 30.4 (27.0-32.0) pg MCHC 31.6 (31.0-37.0) g/dL RDW Std Deviation 51.8 (28.0-62.0) fl RDW Coeff of [place]anda 15 (11.0-15.0) % Plt Count 255 (150-400) K/uL MPV 9.40 (7.40-12.00) fL Neut % (Auto) 71.8 (48.0-80.0) % Lymph % (Auto) 16.0 (16.0-40.0) % [place] % (Auto) 9.2 (0.0-15.0) % Eos % (Auto) 2.7 (0.0-7.0) % Baso % (Auto) 0.3 (0.0-1.5) % Neut # (Auto) 6.5 H (1.4-5.7) K/uL Lymph # (Auto) 1.4 (0.6-2.4) K/uL [place] # (Auto) 0.8 (0.0-0.8) K/uL Eos # (Auto) 0.2 (0.0-0.7) K/uL Baso # (Auto) 0.0 (0.0-0.1) K/uL Nucleated RBC % 0.0 /100WBC Nucleated RBCs # 0 K/uL Sodium (136-145) mmol/L Potassium (3.5-5.1) mmol/L Chloride (98-107) mmol/L Carbon Dioxide (21.0-32.0) mmol/L BUN (7.0-18.0) mg/dL Creatinine (0.6-1.0) mg/dL Est Cr Clr Drug Dosing mL/min Estimated GFR (MDRD) ml/min Glucose (74-106) mg/dL POC Glucose 132 H (60-110) mg/dL Hemoglobin A1c (4.5-6.2) % Calcium (8.5-10.1) mg/dL Total Bilirubin (0.2-1.0) mg/dL AST (15-37) IU/L ALT (14-63) IU/L Alkaline Phosphatase (46-116) U/L Troponin I < 0.050 (0.000-0.056) ng/mL B-Natriuretic Peptide (<100) PG/ML Total Protein (6.4-8.2) g/dL Albumin (3.4-5.0) g/dL Globulin (2.6-4.0) g/dL Albumin/Globulin Ratio (0.9-1.6) Triglycerides (0-200) mg/dL Cholesterol (50-200) mg/dL LDL Cholesterol, Calc (60-180) mg/dL VLDL Cholesterol (5-55) mg/dL HDL Cholesterol (40-60) mg/dL Cholesterol/HDL Ratio (3.3-6.0) Urine Color Urine Appearance Urine pH (5.0-8.0) Ur Specific [place] (1.001-1.035) Urine Protein (NEGATIVE) mg/dL Urine Glucose (UA) (NEGATIVE) mg/dL Urine Ketones (NEGATIVE) mg/dL Urine Occult Blood (NEGATIVE) Urine Nitrite (NEGATIVE) Urine Bilirubin (NEGATIVE) Urine Urobilinogen (<2.0) EU/dL Ur Leukocyte Esterase (NEGATIVE) Urine RBC (0-2/HPF) Urine WBC (0-5/HPF) Ur Epithelial Cells (NONE-FEW) Amorphous Sediment (NEGATIVE) Urine Bacteria (NEGATIVE) Urine Mucus (NONE-MOD) 11/01/18 11/01/18 Range/Units 04:55 06:24 WBC (4.0-11.0) K/uL RBC (4.30-5.90) M/uL Hgb (12.0-16.0) g/dL Hct (36.0-46.0) % MCV (80.0-98.0) fL MCH (27.0-32.0) pg MCHC (31.0-37.0) g/dL RDW Std Deviation (28.0-62.0) fl RDW Coeff of [place] (11.0-15.0) % Plt Count (150-400) K/uL MPV (7.40-12.00) fL Neut % (Auto) (48.0-80.0) % Lymph % (Auto) (16.0-40.0) % [place] % (Auto) (0.0-15.0) % Eos % (Auto) (0.0-7.0) % Baso % (Auto) (0.0-1.5) % Neut # (Auto) (1.4-5.7) K/uL Lymph # (Auto) (0.6-2.4) K/uL [place] # (Auto) (0.0-0.8) K/uL Eos # (Auto) (0.0-0.7) K/uL Baso # (Auto) (0.0-0.1) K/uL Nucleated RBC % /100WBC Nucleated RBCs # K/uL Sodium 140 (136-145) mmol/L Potassium 3.6 (3.5-5.1) mmol/L Chloride 101 (98-107) mmol/L Carbon Dioxide 32.5 H (21.0-32.0) mmol/L BUN 9 (7.0-18.0) mg/dL Creatinine 1.0 (0.6-1.0) mg/dL Est Cr Clr Drug Dosing 39.70 mL/min Estimated GFR (MDRD) 53.2 ml/min Glucose 155 H (74-106) mg/dL POC Glucose 141 H (60-110) mg/dL Hemoglobin A1c (4.5-6.2) % Calcium 9.2 (8.5-10.1) mg/dL Total Bilirubin (0.2-1.0) mg/dL AST (15-37) IU/L ALT (14-63) IU/L Alkaline Phosphatase (46-116) U/L Troponin I (0.000-0.056) ng/mL B-Natriuretic Peptide (<100) PG/ML Total Protein (6.4-8.2) g/dL Albumin (3.4-5.0) g/dL Globulin (2.6-4.0) g/dL Albumin/Globulin Ratio (0.9-1.6) Triglycerides 111 (0-200) mg/dL Cholesterol 171 (50-200) mg/dL LDL Cholesterol, Calc 105 (60-180) mg/dL VLDL Cholesterol 22 (5-55) mg/dL HDL Cholesterol 44 (40-60) mg/dL Cholesterol/HDL Ratio 3.9 (3.3-6.0) Urine Color Urine Appearance Urine pH (5.0-8.0) Ur Specific [place] (1.001-1.035) Urine Protein (NEGATIVE) mg/dL Urine Glucose (UA) (NEGATIVE) mg/dL Urine Ketones (NEGATIVE) mg/dL Urine Occult Blood (NEGATIVE) Urine Nitrite (NEGATIVE) Urine Bilirubin (NEGATIVE) Urine Urobilinogen (<2.0) EU/dL Ur Leukocyte Esterase (NEGATIVE) Urine RBC (0-2/HPF) Urine WBC (0-5/HPF) Ur Epithelial Cells (NONE-FEW) Amorphous Sediment (NEGATIVE) Urine Bacteria (NEGATIVE) Urine Mucus (NONE-MOD) Result Diagrams: 11/01/18 04:55 11/01/18 04:55 [place] Results Last 24 hrs: Microbiology 10/31/18 13:21 Influenza Type A Antigen Screen - Final Nasopharyngeal Swab NEGATIVE INFLUENZA A VIRUS AG Influenza Type B Antigen Screen - Final NEGATIVE INFLUENZA B VIRUS AG Orders Last 24hrs: Active Orders 24 hr Category Date Time Status Admission Status [Patient Status] [ADT] Stat ADT 10/31/18 14:00 Active Cardiac Monitoring [RC] Q8H Care 10/31/18 14:00 Active Discontinue Telemetry Monitoring [Cardiac Monitoring Care 11/01/18 08:25 Active Discontinue] [RC] Click to Edit Intake and Output [RC] QSHIFT Care 10/31/18 15:21 Active Oxygen Therapy [RC] PRN Care 10/31/18 15:20 Active RT Aerosol Therapy [RC] ASDIRECTED Care 10/31/18 12:35 Active RT Aerosol Therapy [RC] ASDIRECTED Care 10/31/18 15:22 Active Ready for Discharge [RC] PER UNIT ROUTINE Care 11/01/18 08:21 Active Telemetry Monitoring [Cardiac Monitoring] [RC] . Care 10/31/18 15:28 Active DIRECTED Up With Assistance [RC] ASDIRECTED Care 10/31/18 15:20 Active Vital Signs [RC] Q4H Care 10/31/18 15:20 Active Consistent Carbohydrate Diet [DIET] Diet 10/31/18 Lunch Active CULTURE SPUTUM + SMEAR [RM] Stat Lab 10/31/18 16:45 Received CULTURE URINE [RM] Stat Lab 10/31/18 13:25 Received Acetaminophen [Tylenol] Med 10/31/18 15:20 Active 650 mg PO Q4H PRN Albuterol/Ipratropium [DuoNeb 3.0-0.5 MG/3 ML] Med 10/31/18 18:00 Active 3 ml NEB Q4HRRT Calcium Carbonate/Vitamin D3 [Caltrate 600+D 1500 MG- Med 11/01/18 09:00 Active 400 Units] 1 tab PO DAILY Cholecalciferol (Vitamin D3) [Vitamin D3] Med 11/01/18 09:00 Active 5,000 units PO DAILY Furosemide [Lasix] Med 10/31/18 16:44 Active 40 mg PO BID@0800,1400 Heparin Sodium Med 11/01/18 09:00 Active 5,000 units SUBCUT Q12H Insulin Aspart [NovoLOG] Med 10/31/18 17:00 Active See Protocol SUBCUT TIDAC Latanoprost [Xalatan 0.005% Ophth Soln] Med 10/31/18 21:00 Active 2.5 ml EYEBOTH BEDTIME Metoprolol Succinate [Toprol XL] Med 11/01/18 09:00 Active 50 mg PO DAILY OLANZapine [ZyPREXA] Med 10/31/18 21:00 Active 5 mg PO BEDTIME Ondansetron [Zofran] Med 10/31/18 15:20 Active 4 mg IVPUSH Q4H PRN Patient's Own Medication [Ptom] Med 10/31/18 21:00 Active 1 each PO BID Patient's Own Medication [Ptom] Med 10/31/18 21:00 Active 2 each INH BID Potassium Chloride [Klor-Con M20] Med 10/31/18 17:00 Active 20 meq PO BIDMEALS Sertraline [Zoloft] Med 11/01/18 09:00 Active 150 mg PO DAILY Simvastatin [Zocor] Med 10/31/18 21:00 Active 20 mg PO BEDTIME Sodium Chloride 0.9% [Saline Flush] Med 10/31/18 12:31 Active 10 ml FLUSH ASDIRECTED PRN Sodium Chloride 0.9% [Saline Flush] Med 10/31/18 12:31 Active 2.5 ml FLUSH ASDIRECTED PRN cefTRIAXone [Rocephin] 1 gm Med 11/01/18 13:00 Active Sodium Chloride 0.9% [Normal Saline] 50 ml IV Q24H predniSONE Med 10/31/18 17:00 Active 2.5 mg PO BIDMEALS traZODone Med 10/31/18 21:00 Active 50 mg PO BEDTIME Saline Lock Insert [OM.PC] Stat Oth 10/31/18 12:31 Ordered Resuscitation Status Routine Resus Stat 10/31/18 15:20 Ordered Medication Orders Acetaminophen (Tylenol) 650 mg PO Q4H PRN PRN Reason: Pain (Mild 1-3)/fever Albuterol/Ipratropium (Duoneb 3.0-0.5 Mg/3 Ml) 3 ml NEB Q4HRRT [facility] Last Admin: 11/01/18 06:09 Dose: 3 ml Admin: 11/01/18 01:12 Dose: 3 ml Admin: 10/31/18 21:14 Dose: 3 ml Admin: 10/31/18 17:34 Dose: 3 ml Calcium Carbonate (Caltrate 600+D 1500 Mg-400 Units) 1 tab PO DAILY [facility] Last Admin: 11/01/18 08:09 Dose: 1 tab Cholecalciferol (Vitamin D3) 5,000 units PO DAILY [facility] Last Admin: 11/01/18 08:08 Dose: 5,000 units Furosemide (Lasix) 40 mg PO BID@0800,1400 [facility] Last Admin: 11/01/18 08:09 Dose: 40 mg Admin: 10/31/18 17:09 Dose: 40 mg Heparin Sodium (Porcine) (Heparin Sodium) 5,000 units SUBCUT Q12H [facility] Last Admin: 11/01/18 08:08 Dose: 5,000 units Ceftriaxone Sodium 1 gm/ (Sodium Chloride) 50 mls @ 100 mls/hr IV Q24H [facility] Insulin Aspart (Novolog) 0 unit SUBCUT TIDAC [facility]; Protocol Last Admin: 11/01/18 06:30 Dose: Not Given Admin: 10/31/18 17:34 Dose: Not Given Latanoprost (Xalatan 0.005% Ophth Soln) 2.5 ml EYEBOTH BEDTIME [facility] Last Admin: 10/31/18 20:24 Dose: 1 drop Metoprolol Succinate (Toprol Xl) 50 mg PO DAILY [facility] Last Admin: 11/01/18 08:09 Dose: 50 mg Olanzapine (Zyprexa) 5 mg PO BEDTIME [facility] Last Admin: 10/31/18 20:23 Dose: 5 mg Ondansetron HCl (Zofran) 4 mg IVPUSH Q4H PRN PRN Reason: Nausea Budesonide/Formoterol 160-4.5 Mcg/Puff 2 Puffs 2 each INH BID [facility] Last Admin: 10/31/18 20:24 Dose: 2 each [Preservision] 1 (Each) 1 each PO BID [facility] Last Admin: 11/01/18 08:12 Dose: Admin: 10/31/18 20:26 Dose: Potassium Chloride (Klor-Con M20) 20 meq PO BIDMEALS [facility] Last Admin: 11/01/18 08:09 Dose: 20 meq Admin: 10/31/18 17:09 Dose: 20 meq Prednisone (Prednisone) 2.5 mg PO BIDMEALS [facility] Last Admin: 11/01/18 08:10 Dose: 2.5 mg Admin: 10/31/18 17:09 Dose: 2.5 mg Sertraline HCl (Zoloft) 150 mg PO DAILY [facility] Last Admin: 11/01/18 08:08 Dose: 150 mg Simvastatin (Zocor) 20 mg PO BEDTIME [facility] Last Admin: 10/31/18 20:23 Dose: 20 mg Sodium Chloride (Saline Flush) 10 ml FLUSH ASDIRECTED PRN PRN Reason: Keep Vein Open Sodium Chloride (Saline Flush) 2.5 ml FLUSH ASDIRECTED PRN PRN Reason: Keep Vein Open Trazodone HCl (Trazodone) 50 mg PO BEDTIME [facility] Last Admin: 10/31/18 20:23 Dose: 50 mg
[2018-10-31 17:07] LABS: HEMOGLOBIN A1C 7.4 % (4.5-6.2)
[2018-10-31] MEDS: Heparin Sodium 5,000 Units/ML Vial SUBCUT SCH (17:07)
[2018-10-31] MEDS: Potassium Chloride 20 MEQ Tab.ER PO SCH (17:09)
[2018-10-31] MEDS: predniSONE 5 MG Tab PO SCH (17:09)
[2018-10-31] MEDS: Furosemide 40 MG Tab PO SCH (17:09)
[2018-10-31] MEDS: Insulin Aspart 100 Units/ML 3 ML Pen SUBCUT SCH (17:34)
[2018-10-31] MEDS: Albuterol/Ipratropium 3.0-0.5 MG/3 ML Neb Soln NEB SCH ×2 (17:34→21:14)
[2018-10-31] MEDS: FORMOTEROL INH SCH (20:24)
[2018-10-31] MEDS: BUDESONIDE INH SCH (20:24)
[2018-10-31] MEDS: PRESERVISION PO SCH (20:26)
[2018-10-31] MEDS ORDERED: Latanoprost 0.005% Ophth Soln 2.5 ML Bottle EYEBOTH SCH (21:00)
[2018-10-31] MEDS ORDERED: traZODone 50 MG Tab PO SCH (21:00)
[2018-10-31] MEDS ORDERED: Simvastatin 20 MG Tab PO SCH (21:00)
[2018-10-31] MEDS ORDERED: OLANZapine 5 MG Tab PO SCH (21:00)
[2018-11-01] MEDS: Albuterol/Ipratropium 3.0-0.5 MG/3 ML Neb Soln NEB SCH ×2 (01:12→06:09)
[2018-11-01] MEDS: Heparin Sodium 5,000 Units/ML Vial SUBCUT SCH (01:30)
[2018-11-01] MEDS: Insulin Aspart 100 Units/ML 3 ML Pen SUBCUT SCH (06:30)
[2018-11-01] MEDS: Potassium Chloride 20 MEQ Tab.ER PO SCH (08:09)
[2018-11-01] MEDS: Furosemide 40 MG Tab PO SCH (08:09)
[2018-11-01] MEDS: predniSONE 5 MG Tab PO SCH (08:10)
[2018-11-01 08:11] VITALS: BP 120/60
[2018-11-01] MEDS: PRESERVISION PO SCH (08:12)
--- NOTE | 2018-11-01 08:22 | PCM.DCSUM1 ---
<Bita Harvey M - Last Filed: 11/01/18 09:56> Discharge Summary - Hospital Course Brief History: This 82 year old female with pmh of HTN, DM type 2, COPD, oxygen dependent, depression and CHF presented to the ED with concerns of chest pressure which started initially on Sunday. She has a cold and felti t was related to the cold so she didn't do much. She reports it continued and felt she should be evaluated. She denies radiation of the pain, feels like it was center of her chest. Denies worsening shortness of breath diaphoresis or nausea. She reports not feeling well with hot flashes and chills at home, no tested temperatures. Reports cough, but non productive. No increase in oxygen requirements, normally on 4 L NC. No abdominal pain, diarrhea, constipation or urinary symptoms. She reports she is incontinent of urine, which is baseline over the last couple years and wears a brief. She denies current tobacco use, quit 20 years ago, no alcohol use and no recreational drug use. In the ED labwork WNL. UA revealed UTI, UC pending. Influenza negative. CXR reveals chronic interstitial prominence and left basilar atelectasis and or infiltrate. Troponin negative. EKG revealed SR with no acute ST changes. She will be admitted for atypical chest pain, UTI and CAP. PCP Dr Hines. Diagnosis: Stroke: No - Discharge Data Discharge Date: 11/01/18 Discharge Disposition: Home, Self-Care 01 Condition: Good - Discharge Diagnosis/Problem(s) (1) Chest pain, rule out acute myocardial infarction SNOMED Code(s): 67952186 ICD Code: R07.9 - CHEST PAIN, UNSPECIFIED Status: Acute Current Visit: Yes (2) Urinary tract infection SNOMED Code(s): 05387503 ICD Code: N39.0 - URINARY TRACT INFECTION, SITE NOT SPECIFIED Status: Acute Current Visit: Yes Qualifiers: Urinary tract infection type: acute cystitis Hematuria presence: without hematuria Qualified Code(s): N30.00 - Acute cystitis without hematuria (3) CAP (community acquired pneumonia) SNOMED Code(s): 838623239 ICD Code: J18.9 - PNEUMONIA, UNSPECIFIED ORGANISM Status: Acute Current Visit: Yes (4) COPD (chronic obstructive pulmonary disease) SNOMED Code(s): 13557993 ICD Code: J44.9 - CHRONIC OBSTRUCTIVE PULMONARY DISEASE, UNSPECIFIED Status : Chronic Current Visit: Yes (5) DM type 2 (diabetes mellitus, type 2) SNOMED Code(s): 32810718 ICD Code: E11.9 - TYPE 2 DIABETES MELLITUS WITHOUT COMPLICATIONS Status: Chronic Current Visit: Yes Qualifiers: Diabetes mellitus chcf insulin use: without petroleum terminal plant operator use Diabetes mellitus complication status: without complication Qualified Code(s): E11.9 - Type 2 diabetes mellitus without complications (6) CHF (congestive heart failure) SNOMED Code(s): 82517855 ICD Code: I50.9 - HEART FAILURE, UNSPECIFIED Status: Chronic Current Visit: Yes Qualifiers: Heart failure type: unspecified Heart failure chronicity: chronic Qualified Code(s): I50.9 - Heart failure, unspecified (7) Depression SNOMED Code(s): 64920975 ICD Code: F32.9 - MAJOR DEPRESSIVE DISORDER, SINGLE EPISODE, UNSPECIFIED Status: Chronic Current Visit: Yes (8) Hyperlipidemia SNOMED Code(s): 40439418 ICD Code: E78.5 - HYPERLIPIDEMIA, UNSPECIFIED Status: Chronic Current Visit: Yes (9) Oxygen dependent SNOMED Code(s): 857982890244 ICD Code: Z99.81 - DEPENDENCE ON SUPPLEMENTAL OXYGEN Status: Chronic Current Visit: Yes - Patient Instructions Diet: Heart Healthy Diet, Diabetic Diet Activity: No Strenuous Activities Showering/Bathing: May Shower Notify Provider of: Fever, Increased Pain, Swelling and Redness, Drainage, Nausea and/or Vomiting - Discharge Plan *PRESCRIPTION DRUG MONITORING PROGRAM REVIEWED*: Not Applicable *COPY OF PRESCRIPTION DRUG MONITORING REPORT IN PATIENT JOSSELYN: Not Applicable Prescriptions/Med Rec: Cefdinir 300 mg PO BID #20 capsule Home Medications: Home Meds Albuterol/Ipratropium [DuoNeb 3.0-0.5 MG/3 ML] 3 ml INH Q6H PRN 10/31/18 [ History] Budesonide/Formoterol Fumarate [Symbicort 160-4.5 Mcg Inhaler] 2 puff IH BID [History] Calcium Carbonate/Vitamin D3 [Calcium 250+D] 1 each PO DAILY 10/31/18 [History] Cholecalciferol (Vitamin D3) [Vitamin D3] 5,000 unit PO DAILY 10/31/18 [History] Furosemide 40 mg PO BID@0800,1400 10/31/18 [History] Latanoprost 1 drop OP BEDTIME 10/31/18 [History] Metoprolol Succinate 50 mg PO DAILY 10/31/18 [History] OLANZapine [Olanzapine] 5 mg PO BEDTIME 10/31/18 [History] Potassium Chloride [Klor-Con M20] 20 meq PO BIDMEALS 10/31/18 [History] Sertraline [Zoloft] 150 mg PO DAILY 10/31/18 [History] Simvastatin [Zocor] 20 mg PO BEDTIME 10/31/18 [History] Vit A/Vit C/Vit E/Zinc/Copper [Preservision] 1 each PO BID 10/31/18 [History] metFORMIN [Glucophage] 1,000 mg PO BIDMEALS 10/31/18 [History] predniSONE [Prednisone] 2.5 mg PO BIDMEALS 10/31/18 [History] traZODone HCl [Trazodone HCl] 50 mg PO BEDTIME 10/31/18 [History] Cefdinir 300 mg PO BID #20 capsule 11/01/18 [Rx] Patient Handouts: Urinary Tract Infection, Adult, [id number], Azithromycin tablets, Nonspecific Chest Pain, [id number] Referrals: [facility] [Outside] Willam Hnies MD [Primary Care Provider] - 11/11/18 2:30 pm (Please arrive 15 minutes early for check in.) - Discharge Summary/Plan Comment DC Time >30 min.: No Discharge Summary/Plan Comment: Discharge Diagnoses: Atypical chest pain-resolved CAP UTI COPD, oxygen dependent DM type 2 HTN CHF Robyn was admitted for atypical chest pain. This resolved and she is very eager to be discharged home today. Troponins were negative, telemetry showed no signs of acute ST changes. Chest pain likely secondary to viral URI and PNA. UC pending. She was treated with Rocephin and Azithromycin for UTI and suspected pneumonia. She will be discharged home today with Cefdinir for UTI and CAP. She will follow up with PCP in 1 week. We discussed stress test and she felt she would want to discuss this with Dr Hines before ordering one. I told her it would be recommended with her risk factors. She is to return to ED or clinic if concerns should arise. - General Info Date of Service: 11/01/18 Admission Dx/Problem (Free Text: Admission Diagnosis/Problem Admission Diagnosis/Problem Chest pain, rule out acute myocardial infarction Subjective Update: Sitting up in her chair. Denies concerns. No chest pain and No shortness of breath. remains on home oxygen. VERY eager to go home. Wants to leave now, even though daughter is not here yet. Functional Status: Reports: Pain Controlled, Tolerating Diet, Ambulating, Urinating - Review of Systems General: Reports: No Symptoms. Denies: Fever, Weakness, Fatigue HEENT: Reports: No Symptoms. Denies: Headaches, Sore Throat, Visual Changes Pulmonary: Reports: No Symptoms. Denies: Shortness of Breath, Cough, Sputum Cardiovascular: Reports: Edema (but at baseline). Denies: Chest Pain, Orthopnea Gastrointestinal: Reports: No Symptoms. Denies: Abdominal Pain, Nausea, Vomiting Genitourinary: Reports: No Symptoms. Denies: Dysuria, Frequency, Burning Musculoskeletal: Reports: No Symptoms Skin: Reports: No Symptoms Neurological: Reports: No Symptoms Psychiatric: Reports: No Symptoms - Patient Data Vitals - Most Recent: Last Vital Signs Temp 98.3 F 11/01/18 08:17 Pulse 101 H 11/01/18 08:17 Resp 18 11/01/18 08:17 BP 120/60 11/01/18 08:17 Pulse Ox 93 L 11/01/18 08:17 Weight - Most Recent: 104 kg I&O - Last 24 hours: Intake & Output 10/31/18 11/01/18 11/01/18 22:59 06:59 14:59 Intake Total 675 Output Total 425 Balance 250 Lab Results - Last 24 hrs: Laboratory Results - last 24 hr 10/31/18 10/31/18 10/31/18 Range/Units 12:42 12:42 12:42 WBC 8.12 (4.0-11.0) K/uL RBC 4.02 L (4.30-5.90) M/uL Hgb 12.1 (12.0-16.0) g/dL Hct 38.5 (36.0-46.0) % MCV 95.8 (80.0-98.0) fL MCH 30.1 (27.0-32.0) pg MCHC 31.4 (31.0-37.0) g/dL RDW Std Deviation 51.2 (28.0-62.0) fl RDW Coeff of Fernanda 15 (11.0-15.0) % Plt Count 264 (150-400) K/uL MPV 9.20 (7.40-12.00) fL Neut % (Auto) 63.1 (48.0-80.0) % Lymph % (Auto) 19.6 (16.0-40.0) % [place] % (Auto) 12.6 (0.0-15.0) % Eos % (Auto) 4.2 (0.0-7.0) % Baso % (Auto) 0.5 (0.0-1.5) % Neut # (Auto) 5.1 (1.4-5.7) K/uL Lymph # (Auto) 1.6 (0.6-2.4) K/uL [place] # (Auto) 1.0 H (0.0-0.8) K/uL Eos # (Auto) 0.3 (0.0-0.7) K/uL Baso # (Auto) 0.0 (0.0-0.1) K/uL Nucleated RBC % 0.0 /100WBC Nucleated RBCs # 0 K/uL Sodium 141 (136-145) mmol/L Potassium 4.0 (3.5-5.1) mmol/L Chloride 104 (98-107) mmol/L Carbon Dioxide 31.5 (21.0-32.0) mmol/L BUN 10 (7.0-18.0) mg/dL Creatinine 1.0 (0.6-1.0) mg/dL Est Cr Clr Drug Dosing 39.70 mL/min Estimated GFR (MDRD) 53.2 ml/min Glucose 137 H (74-106) mg/dL POC Glucose (60-110) mg/dL Hemoglobin A1c (4.5-6.2) % Calcium 9.4 (8.5-10.1) mg/dL Total Bilirubin 0.4 (0.2-1.0) mg/dL AST 17 (15-37) IU/L ALT 15 (14-63) IU/L Alkaline Phosphatase 106 (46-116) U/L Troponin I < 0.050 (0.000-0.056) ng/mL B-Natriuretic Peptide 13 (<100) PG/ML Total Protein 7.5 (6.4-8.2) g/dL Albumin 3.2 L (3.4-5.0) g/dL Globulin 4.3 H (2.6-4.0) g/dL Albumin/Globulin Ratio 0.7 L (0.9-1.6) Triglycerides (0-200) mg/dL Cholesterol (50-200) mg/dL LDL Cholesterol, Calc (60-180) mg/dL VLDL Cholesterol (5-55) mg/dL HDL Cholesterol (40-60) mg/dL Cholesterol/HDL Ratio (3.3-6.0) Urine Color Urine Appearance Urine pH (5.0-8.0) Ur Specific Putnam (1.001-1.035) Urine Protein (NEGATIVE) mg/dL Urine Glucose (UA) (NEGATIVE) mg/dL Urine Ketones (NEGATIVE) mg/dL Urine Occult Blood (NEGATIVE) Urine Nitrite (NEGATIVE) Urine Bilirubin (NEGATIVE) Urine Urobilinogen (<2.0) EU/dL Ur Leukocyte Esterase (NEGATIVE) Urine RBC (0-2/HPF) Urine WBC (0-5/HPF) Ur Epithelial Cells (NONE-FEW) Amorphous Sediment (NEGATIVE) Urine Bacteria (NEGATIVE) Urine Mucus (NONE-MOD) 10/31/18 10/31/18 10/31/18 Range/Units 13:25 15:29 16:48 WBC (4.0-11.0) K/uL RBC (4.30-5.90) M/uL Hgb (12.0-16.0) g/dL Hct (36.0-46.0) % MCV (80.0-98.0) fL MCH (27.0-32.0) pg MCHC (31.0-37.0) g/dL RDW Std Deviation (28.0-62.0) fl RDW Coeff of Fernanda (11.0-15.0) % Plt Count (150-400) K/uL MPV (7.40-12.00) fL Neut % (Auto) (48.0-80.0) % Lymph % (Auto) (16.0-40.0) % [place] % (Auto) (0.0-15.0) % Eos % (Auto) (0.0-7.0) % Baso % (Auto) (0.0-1.5) % Neut # (Auto) (1.4-5.7) K/uL Lymph # (Auto) (0.6-2.4) K/uL [place] # (Auto) (0.0-0.8) K/uL Eos # (Auto) (0.0-0.7) K/uL Baso # (Auto) (0.0-0.1) K/uL Nucleated RBC % /100WBC Nucleated RBCs # K/uL Sodium (136-145) mmol/L Potassium (3.5-5.1) mmol/L Chloride (98-107) mmol/L Carbon Dioxide (21.0-32.0) mmol/L BUN (7.0-18.0) mg/dL Creatinine (0.6-1.0) mg/dL Est Cr Clr Drug Dosing mL/min Estimated GFR (MDRD) ml/min Glucose (74-106) mg/dL POC Glucose (60-110) mg/dL Hemoglobin A1c 7.4 H (4.5-6.2) % Calcium (8.5-10.1) mg/dL Total Bilirubin (0.2-1.0) mg/dL AST (15-37) IU/L ALT (14-63) IU/L Alkaline Phosphatase (46-116) U/L Troponin I < 0.050 (0.000-0.056) ng/mL B-Natriuretic Peptide (<100) PG/ML Total Protein (6.4-8.2) g/dL Albumin (3.4-5.0) g/dL Globulin (2.6-4.0) g/dL Albumin/Globulin Ratio (0.9-1.6) Triglycerides (0-200) mg/dL Cholesterol (50-200) mg/dL LDL Cholesterol, Calc (60-180) mg/dL VLDL Cholesterol (5-55) mg/dL HDL Cholesterol (40-60) mg/dL Cholesterol/HDL Ratio (3.3-6.0) Urine Color YELLOW Urine Appearance SLT CLOUDY Urine pH 7.0 (5.0-8.0) Ur Specific [place] 1.010 (1.001-1.035) Urine Protein NEGATIVE (NEGATIVE) mg/dL Urine Glucose (UA) NEGATIVE (NEGATIVE) mg/dL Urine Ketones NEGATIVE (NEGATIVE) mg/dL Urine Occult Blood TRACE-INTACT H (NEGATIVE) Urine Nitrite POSITIVE H (NEGATIVE) Urine Bilirubin NEGATIVE (NEGATIVE) Urine Urobilinogen 0.2 (<2.0) EU/dL Ur Leukocyte Esterase LARGE H (NEGATIVE) Urine RBC 1-2 (0-2/HPF) Urine WBC 35-42 (0-5/HPF) Ur Epithelial Cells FEW (NONE-FEW) Amorphous Sediment FEW (NEGATIVE) Urine Bacteria 2+ H (NEGATIVE) Urine Mucus FEW (NONE-MOD) 10/31/18 11/01/18 11/01/18 Range/Units 17:32 01:00 04:55 WBC 8.99 (4.0-11.0) K/uL RBC 3.92 L (4.30-5.90) M/uL Hgb 11.9 L (12.0-16.0) g/dL Hct 37.6 (36.0-46.0) % MCV 95.9 (80.0-98.0) fL MCH 30.4 (27.0-32.0) pg MCHC 31.6 (31.0-37.0) g/dL RDW Std Deviation 51.8 (28.0-62.0) fl RDW Coeff of Fernanda 15 (11.0-15.0) % Plt Count 255 (150-400) K/uL MPV 9.40 (7.40-12.00) fL Neut % (Auto) 71.8 (48.0-80.0) % Lymph % (Auto) 16.0 (16.0-40.0) % [place] % (Auto) 9.2 (0.0-15.0) % Eos % (Auto) 2.7 (0.0-7.0) % Baso % (Auto) 0.3 (0.0-1.5) % Neut # (Auto) 6.5 H (1.4-5.7) K/uL Lymph # (Auto) 1.4 (0.6-2.4) K/uL [place] # (Auto) 0.8 (0.0-0.8) K/uL Eos # (Auto) 0.2 (0.0-0.7) K/uL Baso # (Auto) 0.0 (0.0-0.1) K/uL Nucleated RBC % 0.0 /100WBC Nucleated RBCs # 0 K/uL Sodium (136-145) mmol/L Potassium (3.5-5.1) mmol/L Chloride (98-107) mmol/L Carbon Dioxide (21.0-32.0) mmol/L BUN (7.0-18.0) mg/dL Creatinine (0.6-1.0) mg/dL Est Cr Clr Drug Dosing mL/min Estimated GFR (MDRD) ml/min Glucose (74-106) mg/dL POC Glucose 132 H (60-110) mg/dL Hemoglobin A1c (4.5-6.2) % Calcium (8.5-10.1) mg/dL Total Bilirubin (0.2-1.0) mg/dL AST (15-37) IU/L ALT (14-63) IU/L Alkaline Phosphatase (46-116) U/L Troponin I < 0.050 (0.000-0.056) ng/mL B-Natriuretic Peptide (<100) PG/ML Total Protein (6.4-8.2) g/dL Albumin (3.4-5.0) g/dL Globulin (2.6-4.0) g/dL Albumin/Globulin Ratio (0.9-1.6) Triglycerides (0-200) mg/dL Cholesterol (50-200) mg/dL LDL Cholesterol, Calc (60-180) mg/dL VLDL Cholesterol (5-55) mg/dL HDL Cholesterol (40-60) mg/dL Cholesterol/HDL Ratio (3.3-6.0) Urine Color Urine Appearance Urine pH (5.0-8.0) Ur Specific [place] (1.001-1.035) Urine Protein (NEGATIVE) mg/dL Urine Glucose (UA) (NEGATIVE) mg/dL Urine Ketones (NEGATIVE) mg/dL Urine Occult Blood (NEGATIVE) Urine Nitrite (NEGATIVE) Urine Bilirubin (NEGATIVE) Urine Urobilinogen (<2.0) EU/dL Ur Leukocyte Esterase (NEGATIVE) Urine RBC (0-2/HPF) Urine WBC (0-5/HPF) Ur Epithelial Cells (NONE-FEW) Amorphous Sediment (NEGATIVE) Urine Bacteria (NEGATIVE) Urine Mucus (NONE-MOD) 11/01/18 11/01/18 Range/Units 04:55 06:24 WBC (4.0-11.0) K/uL RBC (4.30-5.90) M/uL Hgb (12.0-16.0) g/dL Hct (36.0-46.0) % MCV (80.0-98.0) fL MCH (27.0-32.0) pg MCHC (31.0-37.0) g/dL RDW Std Deviation (28.0-62.0) fl RDW Coeff of Fernanda (11.0-15.0) % Plt Count (150-400) K/uL MPV (7.40-12.00) fL Neut % (Auto) (48.0-80.0) % Lymph % (Auto) (16.0-40.0) % [place] % (Auto) (0.0-15.0) % Eos % (Auto) (0.0-7.0) % Baso % (Auto) (0.0-1.5) % Neut # (Auto) (1.4-5.7) K/uL Lymph # (Auto) (0.6-2.4) K/uL [place] # (Auto) (0.0-0.8) K/uL Eos # (Auto) (0.0-0.7) K/uL Baso # (Auto) (0.0-0.1) K/uL Nucleated RBC % /100WBC Nucleated RBCs # K/uL Sodium 140 (136-145) mmol/L Potassium 3.6 (3.5-5.1) mmol/L Chloride 101 (98-107) mmol/L Carbon Dioxide 32.5 H (21.0-32.0) mmol/L BUN 9 (7.0-18.0) mg/dL Creatinine 1.0 (0.6-1.0) mg/dL Est Cr Clr Drug Dosing 39.70 mL/min Estimated GFR (MDRD) 53.2 ml/min Glucose 155 H (74-106) mg/dL POC Glucose 141 H (60-110) mg/dL Hemoglobin A1c (4.5-6.2) % Calcium 9.2 (8.5-10.1) mg/dL Total Bilirubin (0.2-1.0) mg/dL AST (15-37) IU/L ALT (14-63) IU/L Alkaline Phosphatase (46-116) U/L Troponin I (0.000-0.056) ng/mL B-Natriuretic Peptide (<100) PG/ML Total Protein (6.4-8.2) g/dL Albumin (3.4-5.0) g/dL Globulin (2.6-4.0) g/dL Albumin/Globulin Ratio (0.9-1.6) Triglycerides 111 (0-200) mg/dL Cholesterol 171 (50-200) mg/dL LDL Cholesterol, Calc 105 (60-180) mg/dL VLDL Cholesterol 22 (5-55) mg/dL HDL Cholesterol 44 (40-60) mg/dL Cholesterol/HDL Ratio 3.9 (3.3-6.0) Urine Color Urine Appearance Urine pH (5.0-8.0) Ur Specific [place] (1.001-1.035) Urine Protein (NEGATIVE) mg/dL Urine Glucose (UA) (NEGATIVE) mg/dL Urine Ketones (NEGATIVE) mg/dL Urine Occult Blood (NEGATIVE) Urine Nitrite (NEGATIVE) Urine Bilirubin (NEGATIVE) Urine Urobilinogen (<2.0) EU/dL Ur Leukocyte Esterase (NEGATIVE) Urine RBC (0-2/HPF) Urine WBC (0-5/HPF) Ur Epithelial Cells (NONE-FEW) Amorphous Sediment (NEGATIVE) Urine Bacteria (NEGATIVE) Urine Mucus (NONE-MOD) LUIZ Results - Last 24 hrs: Microbiology 10/31/18 13:21 Influenza Type A Antigen Screen - Final Nasopharyngeal Swab NEGATIVE INFLUENZA A VIRUS AG Influenza Type B Antigen Screen - Final NEGATIVE INFLUENZA B VIRUS AG Med Orders - Current: Current Medications Acetaminophen (Tylenol) 650 mg PO Q4H PRN PRN Reason: Pain (Mild 1-3)/fever Albuterol/Ipratropium (Duoneb 3.0-0.5 Mg/3 Ml) 3 ml NEB Q4HRRT [facility] Last Admin: 11/01/18 06:09 Dose: 3 ml Azithromycin (Zithromax) 500 mg PO Q24H [facility] Last Admin: 10/31/18 17:08 Dose: 500 mg Calcium Carbonate (Caltrate 600+D 1500 Mg-400 Units) 1 tab PO DAILY [facility] Last Admin: 11/01/18 08:09 Dose: 1 tab Cholecalciferol (Vitamin D3) 5,000 units PO DAILY [facility] Last Admin: 11/01/18 08:08 Dose: 5,000 units Furosemide (Lasix) 40 mg PO BID@0800,1400 [facility] Last Admin: 11/01/18 08:09 Dose: 40 mg Heparin Sodium (Porcine) (Heparin Sodium) 5,000 units SUBCUT Q12H [facility] Last Admin: 11/01/18 08:08 Dose: 5,000 units Ceftriaxone Sodium 1 gm/ (Sodium Chloride) 50 mls @ 100 mls/hr IV Q24H [facility] Insulin Aspart (Novolog) 0 unit SUBCUT TIDAC [facility]; Protocol Last Admin: 11/01/18 06:30 Dose: Not Given Latanoprost (Xalatan 0.005% Ophth Soln) 2.5 ml EYEBOTH BEDTIME [facility] Last Admin: 10/31/18 20:24 Dose: 1 drop Metoprolol Succinate (Toprol Xl) 50 mg PO DAILY [facility] Last Admin: 11/01/18 08:09 Dose: 50 mg Olanzapine (Zyprexa) 5 mg PO BEDTIME [facility] Last Admin: 10/31/18 20:23 Dose: 5 mg Ondansetron HCl (Zofran) 4 mg IVPUSH Q4H PRN PRN Reason: Nausea Budesonide/Formoterol 160-4.5 Mcg/Puff 2 Puffs 2 each INH BID [facility] Last Admin: 10/31/18 20:24 Dose: 2 each [Preservision] 1 (Each) 1 each PO BID [facility] Last Admin: 11/01/18 08:12 Dose: Not Given Potassium Chloride (Klor-Con M20) 20 meq PO BIDMEALS [facility] Last Admin: 11/01/18 08:09 Dose: 20 meq Prednisone (Prednisone) 2.5 mg PO BIDMEALS [facility] Last Admin: 11/01/18 08:10 Dose: 2.5 mg Sertraline HCl (Zoloft) 150 mg PO DAILY [facility] Last Admin: 11/01/18 08:08 Dose: 150 mg Simvastatin (Zocor) 20 mg PO BEDTIME [facility] Last Admin: 10/31/18 20:23 Dose: 20 mg Sodium Chloride (Saline Flush) 10 ml FLUSH ASDIRECTED PRN PRN Reason: Keep Vein Open Sodium Chloride (Saline Flush) 2.5 ml FLUSH ASDIRECTED PRN PRN Reason: Keep Vein Open Trazodone HCl (Trazodone) 50 mg PO BEDTIME [facility] Last Admin: 10/31/18 20:23 Dose: 50 mg Discontinued Medications Albuterol/Ipratropium (Duoneb 3.0-0.5 Mg/3 Ml) 3 ml NEB ONETIME ONE Stop: 10/31/18 12:36 Last Admin: 10/31/18 12:45 Dose: 3 ml Heparin Sodium (Porcine) (Heparin Sodium) 5,000 units SUBCUT Q12H [facility] Last Admin: 11/01/18 01:30 Dose: 5,000 units Ceftriaxone Sodium/Dextrose 1 (gm/ Premix) 50 mls @ 100 mls/hr IV ONETIME ONE Stop: 10/31/18 14:28 Last Admin: 10/31/18 15:37 Dose: 100 mls/hr - Exam Quality Assessment: Reports: Supplemental Oxygen General: Reports: Alert, Oriented, Cooperative, No Acute Distress Lungs: Reports: Clear to Auscultation, Normal Respiratory Effort. Denies: Crackles, Rhonchi, Wheezing Cardiovascular: Reports: Regular Rate, Regular Rhythm GI/Abdominal Exam: Normal Bowel Sounds, Soft, Non-Tender, No Organomegaly Back Exam: Reports: Normal Inspection, Full Range of Motion Extremities: Normal Inspection, Normal Range of Motion, Pedal Edema (+1 non pitting edema) Skin: Reports: Warm, Dry Neurological: Reports: No New Focal Deficit Psy/Mental Status: Reports: Alert, Normal Affect, Normal Mood <Rishi Rose - Last Filed: 11/01/18 10:34> Discharge Summary - Hospital Course Free Text/Narrative:: I have examined the patient independently of Bita Harvey CNP. I have discussed the case with her. I agree with the assessment and plan of care for this patient as outlined by her. Please see orders. Patient feels she can safely go home. - Patient Data Vitals - Most Recent: Last Vital Signs Temp 36.8 C 11/01/18 08:17 Pulse 101 H 11/01/18 08:17 Resp 18 11/01/18 08:17 BP 120/60 11/01/18 08:17 Pulse Ox 93 L 11/01/18 08:17 I&O - Last 24 hours: Intake & Output 10/31/18 11/01/18 11/01/18 22:59 06:59 14:59 Intake Total 675 Output Total 425 Balance 250 Lab Results - Last 24 hrs: Laboratory Results - last 24 hr 10/31/18 10/31/18 10/31/18 Range/Units 12:42 12:42 12:42 WBC 8.12 (4.0-11.0) K/uL RBC 4.02 L (4.30-5.90) M/uL Hgb 12.1 (12.0-16.0) g/dL Hct 38.5 (36.0-46.0) % MCV 95.8 (80.0-98.0) fL MCH 30.1 (27.0-32.0) pg MCHC 31.4 (31.0-37.0) g/dL RDW Std Deviation 51.2 (28.0-62.0) fl RDW Coeff of Fernanda 15 (11.0-15.0) % Plt Count 264 (150-400) K/uL MPV 9.20 (7.40-12.00) fL Neut % (Auto) 63.1 (48.0-80.0) % Lymph % (Auto) 19.6 (16.0-40.0) % [place] % (Auto) 12.6 (0.0-15.0) % Eos % (Auto) 4.2 (0.0-7.0) % Baso % (Auto) 0.5 (0.0-1.5) % Neut # (Auto) 5.1 (1.4-5.7) K/uL Lymph # (Auto) 1.6 (0.6-2.4) K/uL [place] # (Auto) 1.0 H (0.0-0.8) K/uL Eos # (Auto) 0.3 (0.0-0.7) K/uL Baso # (Auto) 0.0 (0.0-0.1) K/uL Nucleated RBC % 0.0 /100WBC Nucleated RBCs # 0 K/uL Sodium 141 (136-145) mmol/L Potassium 4.0 (3.5-5.1) mmol/L Chloride 104 (98-107) mmol/L Carbon Dioxide 31.5 (21.0-32.0) mmol/L BUN 10 (7.0-18.0) mg/dL Creatinine 1.0 (0.6-1.0) mg/dL Est Cr Clr Drug Dosing 39.70 mL/min Estimated GFR (MDRD) 53.2 ml/min Glucose 137 H (74-106) mg/dL POC Glucose (60-110) mg/dL Hemoglobin A1c (4.5-6.2) % Calcium 9.4 (8.5-10.1) mg/dL Total Bilirubin 0.4 (0.2-1.0) mg/dL AST 17 (15-37) IU/L ALT 15 (14-63) IU/L Alkaline Phosphatase 106 (46-116) U/L Troponin I < 0.050 (0.000-0.056) ng/mL B-Natriuretic Peptide 13 (<100) PG/ML Total Protein 7.5 (6.4-8.2) g/dL Albumin 3.2 L (3.4-5.0) g/dL Globulin 4.3 H (2.6-4.0) g/dL Albumin/Globulin Ratio 0.7 L (0.9-1.6) Triglycerides (0-200) mg/dL Cholesterol (50-200) mg/dL LDL Cholesterol, Calc (60-180) mg/dL VLDL Cholesterol (5-55) mg/dL HDL Cholesterol (40-60) mg/dL Cholesterol/HDL Ratio (3.3-6.0) Urine Color Urine Appearance Urine pH (5.0-8.0) Ur Specific [place] (1.001-1.035) Urine Protein (NEGATIVE) mg/dL Urine Glucose (UA) (NEGATIVE) mg/dL Urine Ketones (NEGATIVE) mg/dL Urine Occult Blood (NEGATIVE) Urine Nitrite (NEGATIVE) Urine Bilirubin (NEGATIVE) Urine Urobilinogen (<2.0) EU/dL Ur Leukocyte Esterase (NEGATIVE) Urine RBC (0-2/HPF) Urine WBC (0-5/HPF) Ur Epithelial Cells (NONE-FEW) Amorphous Sediment (NEGATIVE) Urine Bacteria (NEGATIVE) Urine Mucus (NONE-MOD) 10/31/18 10/31/18 10/31/18 Range/Units 13:25 15:29 16:48 WBC (4.0-11.0) K/uL RBC (4.30-5.90) M/uL Hgb (12.0-16.0) g/dL Hct (36.0-46.0) % MCV (80.0-98.0) fL MCH (27.0-32.0) pg MCHC (31.0-37.0) g/dL RDW Std Deviation (28.0-62.0) fl RDW Coeff of [place]anda (11.0-15.0) % Plt Count (150-400) K/uL MPV (7.40-12.00) fL Neut % (Auto) (48.0-80.0) % Lymph % (Auto) (16.0-40.0) % [place] % (Auto) (0.0-15.0) % Eos % (Auto) (0.0-7.0) % Baso % (Auto) (0.0-1.5) % Neut # (Auto) (1.4-5.7) K/uL Lymph # (Auto) (0.6-2.4) K/uL [place] # (Auto) (0.0-0.8) K/uL Eos # (Auto) (0.0-0.7) K/uL Baso # (Auto) (0.0-0.1) K/uL Nucleated RBC % /100WBC Nucleated RBCs # K/uL Sodium (136-145) mmol/L Potassium (3.5-5.1) mmol/L Chloride (98-107) mmol/L Carbon Dioxide (21.0-32.0) mmol/L BUN (7.0-18.0) mg/dL Creatinine (0.6-1.0) mg/dL Est Cr Clr Drug Dosing mL/min Estimated GFR (MDRD) ml/min Glucose (74-106) mg/dL POC Glucose (60-110) mg/dL Hemoglobin A1c 7.4 H (4.5-6.2) % Calcium (8.5-10.1) mg/dL Total Bilirubin (0.2-1.0) mg/dL AST (15-37) IU/L ALT (14-63) IU/L Alkaline Phosphatase (46-116) U/L Troponin I < 0.050 (0.000-0.056) ng/mL B-Natriuretic Peptide (<100) PG/ML Total Protein (6.4-8.2) g/dL Albumin (3.4-5.0) g/dL Globulin (2.6-4.0) g/dL Albumin/Globulin Ratio (0.9-1.6) Triglycerides (0-200) mg/dL Cholesterol (50-200) mg/dL LDL Cholesterol, Calc (60-180) mg/dL VLDL Cholesterol (5-55) mg/dL HDL Cholesterol (40-60) mg/dL Cholesterol/HDL Ratio (3.3-6.0) Urine Color YELLOW Urine Appearance SLT CLOUDY Urine pH 7.0 (5.0-8.0) Ur Specific [place] 1.010 (1.001-1.035) Urine Protein NEGATIVE (NEGATIVE) mg/dL Urine Glucose (UA) NEGATIVE (NEGATIVE) mg/dL Urine Ketones NEGATIVE (NEGATIVE) mg/dL Urine Occult Blood TRACE-INTACT H (NEGATIVE) Urine Nitrite POSITIVE H (NEGATIVE) Urine Bilirubin NEGATIVE (NEGATIVE) Urine Urobilinogen 0.2 (<2.0) EU/dL Ur Leukocyte Esterase LARGE H (NEGATIVE) Urine RBC 1-2 (0-2/HPF) Urine WBC 35-42 (0-5/HPF) Ur Epithelial Cells FEW (NONE-FEW) Amorphous Sediment FEW (NEGATIVE) Urine Bacteria 2+ H (NEGATIVE) Urine Mucus FEW (NONE-MOD) 10/31/18 11/01/18 11/01/18 Range/Units 17:32 01:00 04:55 WBC 8.99 (4.0-11.0) K/uL RBC 3.92 L (4.30-5.90) M/uL Hgb 11.9 L (12.0-16.0) g/dL Hct 37.6 (36.0-46.0) % MCV 95.9 (80.0-98.0) fL MCH 30.4 (27.0-32.0) pg MCHC 31.6 (31.0-37.0) g/dL RDW Std Deviation 51.8 (28.0-62.0) fl RDW Coeff of Fernanda 15 (11.0-15.0) % Plt Count 255 (150-400) K/uL MPV 9.40 (7.40-12.00) fL Neut % (Auto) 71.8 (48.0-80.0) % Lymph % (Auto) 16.0 (16.0-40.0) % [place] % (Auto) 9.2 (0.0-15.0) % Eos % (Auto) 2.7 (0.0-7.0) % Baso % (Auto) 0.3 (0.0-1.5) % Neut # (Auto) 6.5 H (1.4-5.7) K/uL Lymph # (Auto) 1.4 (0.6-2.4) K/uL [place] # (Auto) 0.8 (0.0-0.8) K/uL Eos # (Auto) 0.2 (0.0-0.7) K/uL Baso # (Auto) 0.0 (0.0-0.1) K/uL Nucleated RBC % 0.0 /100WBC Nucleated RBCs # 0 K/uL Sodium (136-145) mmol/L Potassium (3.5-5.1) mmol/L Chloride (98-107) mmol/L Carbon Dioxide (21.0-32.0) mmol/L BUN (7.0-18.0) mg/dL Creatinine (0.6-1.0) mg/dL Est Cr Clr Drug Dosing mL/min Estimated GFR (MDRD) ml/min Glucose (74-106) mg/dL POC Glucose 132 H (60-110) mg/dL Hemoglobin A1c (4.5-6.2) % Calcium (8.5-10.1) mg/dL Total Bilirubin (0.2-1.0) mg/dL AST (15-37) IU/L ALT (14-63) IU/L Alkaline Phosphatase (46-116) U/L Troponin I < 0.050 (0.000-0.056) ng/mL B-Natriuretic Peptide (<100) PG/ML Total Protein (6.4-8.2) g/dL Albumin (3.4-5.0) g/dL Globulin (2.6-4.0) g/dL Albumin/Globulin Ratio (0.9-1.6) Triglycerides (0-200) mg/dL Cholesterol (50-200) mg/dL LDL Cholesterol, Calc (60-180) mg/dL VLDL Cholesterol (5-55) mg/dL HDL Cholesterol (40-60) mg/dL Cholesterol/HDL Ratio (3.3-6.0) Urine Color Urine Appearance Urine pH (5.0-8.0) Ur Specific [place] (1.001-1.035) Urine Protein (NEGATIVE) mg/dL Urine Glucose (UA) (NEGATIVE) mg/dL Urine Ketones (NEGATIVE) mg/dL Urine Occult Blood (NEGATIVE) Urine Nitrite (NEGATIVE) Urine Bilirubin (NEGATIVE) Urine Urobilinogen (<2.0) EU/dL Ur Leukocyte Esterase (NEGATIVE) Urine RBC (0-2/HPF) Urine WBC (0-5/HPF) Ur Epithelial Cells (NONE-FEW) Amorphous Sediment (NEGATIVE) Urine Bacteria (NEGATIVE) Urine Mucus (NONE-MOD) 11/01/18 11/01/18 Range/Units 04:55 06:24 WBC (4.0-11.0) K/uL RBC (4.30-5.90) M/uL Hgb (12.0-16.0) g/dL Hct (36.0-46.0) % MCV (80.0-98.0) fL MCH (27.0-32.0) pg MCHC (31.0-37.0) g/dL RDW Std Deviation (28.0-62.0) fl RDW Coeff of Fernanda (11.0-15.0) % Plt Count (150-400) K/uL MPV (7.40-12.00) fL Neut % (Auto) (48.0-80.0) % Lymph % (Auto) (16.0-40.0) % [place] % (Auto) (0.0-15.0) % Eos % (Auto) (0.0-7.0) % Baso % (Auto) (0.0-1.5) % Neut # (Auto) (1.4-5.7) K/uL Lymph # (Auto) (0.6-2.4) K/uL [place] # (Auto) (0.0-0.8) K/uL Eos # (Auto) (0.0-0.7) K/uL Baso # (Auto) (0.0-0.1) K/uL Nucleated RBC % /100WBC Nucleated RBCs # K/uL Sodium 140 (136-145) mmol/L Potassium 3.6 (3.5-5.1) mmol/L Chloride 101 (98-107) mmol/L Carbon Dioxide 32.5 H (21.0-32.0) mmol/L BUN 9 (7.0-18.0) mg/dL Creatinine 1.0 (0.6-1.0) mg/dL Est Cr Clr Drug Dosing 39.70 mL/min Estimated GFR (MDRD) 53.2 ml/min Glucose 155 H (74-106) mg/dL POC Glucose 141 H (60-110) mg/dL Hemoglobin A1c (4.5-6.2) % Calcium 9.2 (8.5-10.1) mg/dL Total Bilirubin (0.2-1.0) mg/dL AST (15-37) IU/L ALT (14-63) IU/L Alkaline Phosphatase (46-116) U/L Troponin I (0.000-0.056) ng/mL B-Natriuretic Peptide (<100) PG/ML Total Protein (6.4-8.2) g/dL Albumin (3.4-5.0) g/dL Globulin (2.6-4.0) g/dL Albumin/Globulin Ratio (0.9-1.6) Triglycerides 111 (0-200) mg/dL Cholesterol 171 (50-200) mg/dL LDL Cholesterol, Calc 105 (60-180) mg/dL VLDL Cholesterol 22 (5-55) mg/dL HDL Cholesterol 44 (40-60) mg/dL Cholesterol/HDL Ratio 3.9 (3.3-6.0) Urine Color Urine Appearance Urine pH (5.0-8.0) Ur Specific [place] (1.001-1.035) Urine Protein (NEGATIVE) mg/dL Urine Glucose (UA) (NEGATIVE) mg/dL Urine Ketones (NEGATIVE) mg/dL Urine Occult Blood (NEGATIVE) Urine Nitrite (NEGATIVE) Urine Bilirubin (NEGATIVE) Urine Urobilinogen (<2.0) EU/dL Ur Leukocyte Esterase (NEGATIVE) Urine RBC (0-2/HPF) Urine WBC (0-5/HPF) Ur Epithelial Cells (NONE-FEW) Amorphous Sediment (NEGATIVE) Urine Bacteria (NEGATIVE) Urine Mucus (NONE-MOD) LUIZ Results - Last 24 hrs: Microbiology 10/31/18 13:21 Influenza Type A Antigen Screen - Final Nasopharyngeal Swab NEGATIVE INFLUENZA A VIRUS AG Influenza Type B Antigen Screen - Final NEGATIVE INFLUENZA B VIRUS AG Med Orders - Current: Current Medications Acetaminophen (Tylenol) 650 mg PO Q4H PRN PRN Reason: Pain (Mild 1-3)/fever Albuterol/Ipratropium (Duoneb 3.0-0.5 Mg/3 Ml) 3 ml NEB Q4HRRT [facility] Last Admin: 11/01/18 06:09 Dose: 3 ml Calcium Carbonate (Caltrate 600+D 1500 Mg-400 Units) 1 tab PO DAILY [facility] Last Admin: 11/01/18 08:09 Dose: 1 tab Cholecalciferol (Vitamin D3) 5,000 units PO DAILY [facility] Last Admin: 11/01/18 08:08 Dose: 5,000 units Furosemide (Lasix) 40 mg PO BID@0800,1400 [facility] Last Admin: 11/01/18 08:09 Dose: 40 mg Heparin Sodium (Porcine) (Heparin Sodium) 5,000 units SUBCUT Q12H [facility] Last Admin: 11/01/18 08:08 Dose: 5,000 units Ceftriaxone Sodium 1 gm/ (Sodium Chloride) 50 mls @ 100 mls/hr IV Q24H [facility] Insulin Aspart (Novolog) 0 unit SUBCUT TIDAC [facility]; Protocol Last Admin: 11/01/18 06:30 Dose: Not Given Latanoprost (Xalatan 0.005% [facility]) 2.5 ml EYEBOTH BEDTIME [facility] Last Admin: 10/31/18 20:24 Dose: 1 drop Metoprolol Succinate (Toprol Xl) 50 mg PO DAILY [facility] Last Admin: 11/01/18 08:09 Dose: 50 mg Olanzapine (Zyprexa) 5 mg PO BEDTIME [facility] Last Admin: 10/31/18 20:23 Dose: 5 mg Ondansetron HCl (Zofran) 4 mg IVPUSH Q4H PRN PRN Reason: Nausea Budesonide/Formoterol 160-4.5 Mcg/Puff 2 Puffs 2 each INH BID [facility] Last Admin: 11/01/18 10:33 Dose: Not Given [Preservision] 1 (Each) 1 each PO BID [facility] Last Admin: 11/01/18 08:12 Dose: Not Given Potassium Chloride (Klor-Con M20) 20 meq PO BIDMEALS [facility] Last Admin: 11/01/18 08:09 Dose: 20 meq Prednisone (Prednisone) 2.5 mg PO BIDMEALS [facility] Last Admin: 11/01/18 08:10 Dose: 2.5 mg Sertraline HCl (Zoloft) 150 mg PO DAILY [facility] Last Admin: 11/01/18 08:08 Dose: 150 mg Simvastatin (Zocor) 20 mg PO BEDTIME [facility] Last Admin: 10/31/18 20:23 Dose: 20 mg Sodium Chloride (Saline Flush) 10 ml FLUSH ASDIRECTED PRN PRN Reason: Keep Vein Open Sodium Chloride (Saline Flush) 2.5 ml FLUSH ASDIRECTED PRN PRN Reason: Keep Vein Open Trazodone HCl (Trazodone) 50 mg PO BEDTIME [facility] Last Admin: 10/31/18 20:23 Dose: 50 mg Discontinued Medications Albuterol/Ipratropium (Duoneb 3.0-0.5 Mg/3 Ml) 3 ml NEB ONETIME ONE Stop: 10/31/18 12:36 Last Admin: 10/31/18 12:45 Dose: 3 ml Azithromycin (Zithromax) 500 mg PO Q24H [facility] Last Admin: 10/31/18 17:08 Dose: 500 mg Azithromycin (Zithromax) 500 mg PO Q24H ONE Stop: 11/01/18 08:38 Last Admin: 11/01/18 09:19 Dose: 500 mg Heparin Sodium (Porcine) (Heparin Sodium) 5,000 units SUBCUT Q12H [facility] Last Admin: 11/01/18 01:30 Dose: 5,000 units Ceftriaxone Sodium/Dextrose 1 (gm/ Premix) 50 mls @ 100 mls/hr IV ONETIME ONE Stop: 10/31/18 14:28 Last Admin: 10/31/18 15:37 Dose: 100 mls/hr
[2018-11-01] MEDS ORDERED: Azithromycin 250 MG Tab PO ONE (08:37)
[2018-11-01] MEDS ORDERED: Heparin Sodium 5,000 Units/ML Vial SUBCUT SCH (09:00)
[2018-11-01] MEDS ORDERED: Metoprolol Succinate 50 MG Tab.ER PO SCH (09:00)
[2018-11-01] MEDS ORDERED: Calcium Carbonate/Vitamin D3 1500 MG-400 Units Tab PO SCH (09:00)
[2018-11-01] MEDS ORDERED: Sertraline 100 MG Tab PO SCH (09:00)
[2018-11-01] MEDS ORDERED: Cholecalciferol (Vitamin D3) 1,000 Unit Tab PO SCH (09:00)
[2018-11-01] MEDS: BUDESONIDE INH SCH (10:33)
[2018-11-01] MEDS: FORMOTEROL INH SCH (10:33)
[2018-11-01] MEDS ORDERED: cefTRIAXone 1 GM in Sodium Chloride 0.9% 50 ML IV SCH (13:00)
== END 2018-11-01 09:25 | disposition home or self-care (01) ==
LOC: MW.ED 12:26 → MW.MS 15:05
PROVIDERS: ADMIT Internal Medicine; ATTEND Internal Medicine
DX: R07.9 Chest pain, unspecified (principal); E78.00 Pure hypercholesterolemia, unspecified; I10 Essential (primary) hypertension; J44.9 Chronic obstructive pulmonary disease, unspecified; F32.9 Major depressive disorder, single episode, unspecified; J98.11 Atelectasis; R32 Unspecified urinary incontinence; E11.9 Type 2 diabetes mellitus without complications; N39.0 Urinary tract infection, site not specified; J18.9 Pneumonia, unspecified organism; I50.9 Heart failure, unspecified; E78.5 Hyperlipidemia, unspecified; Z79.899 Other long term (current) drug therapy; Z79.84 Long term (current) use of oral hypoglycemic drugs; Z87.891 Personal history of nicotine dependence
CPT/HCPCS: 36415; 71045; 80048; 80053; 80061; 81001; 82962; 83036; 83880; 84484; 85025; 87070; 87086; 87088; 87186; 87205; 87804; 93005; 94640; A9270; J0696; J1644; 96365; 96372; 99285-25; G0378; J7620-GY

== ENCOUNTER 2020-03-13 18:52 | Emergency (ER) | payer MEDICARE, BC ==
--- NOTE | 2020-03-13 19:05 | EDM.PDOC ---
ED HPI GENERAL MEDICAL PROBLEM - General Chief Complaint: Upper Extremity Injury/Pain Stated Complaint: EMS ARRIVAL Time Seen by Provider: 03/13/20 19:02 Source of Information: Reports: Patient History Limitations: Reports: No Limitations - History of Present Illness INITIAL COMMENTS - FREE TEXT/NARRATIVE: HISTORY AND PHYSICAL: History of present illness: Patient is an 84-year-old female who presents to the emergency room with complaints of left wrist pain. Prior to arrival she had tripped over a rug and landed on an outstretched arm. She has an obvious deformity and pain to the left wrist. She denies hitting her head or having any loss of consciousness. Denies taking any blood thinners. Does not have any history of bleeding or clotting. Patient denies any fever, chills, headache, change in vision, syncope or near syncope. Denies any chest pain, back pain, shortness of breath or cough. Denies any abdominal pain, nausea, vomiting, diarrhea, constipation or dysuria. Patient has been eating and drinking appropriately. Review of systems: As per history of present illness and below otherwise all systems reviewed and negative. Past medical history: As per history of present illness and as reviewed below otherwise noncontributory. Surgical history: As per history of present illness and as reviewed below otherwise noncontributory. Social history: See social history for further information Family history: As per history of present illness and as reviewed below otherwise noncontributory. Physical exam: General: Well-developed and well-nourished 84-year-old female HEENT: Nontender, no crepitus or obvious injury. She is normocephalic, pupils equal and reactive bilaterally, negative for conjunctival pallor or scleral icterus, mucous membranes moist, TMs normal bilaterally, throat clear, neck supple, nontender, trachea midline. No drooling or trismus noted. No meningeal signs. No hot potato voice noted. Lungs: Clear to auscultation, breath sounds equal bilaterally, chest nontender. Heart: S1S2, regular rate and rhythm without overt murmur Abdomen: Soft, nondistended, nontender. Negative for masses or hepatosplenomegaly. Negative for costovertebral tenderness. Skin: Intact, warm, dry. No lesions or rashes noted. C-spine/Back: No pinpoint vertebral tenderness upon palpation. No crepitus, step -offs or obvious deformities. Good and equal strength to bilateral lower extremities; + foot push/pull. Able to pull up great toe; no foot drop. +CMS. Denies any urinary or fecal incontinence. Denies any numbness, tingling or saddle paresthesia. Extremities: Pain with palpation of the left wrist with soft tissue swelling noted. Strong radial pulse with cap refill less than 3 seconds. +CMS bilat. Minimal discomfort with palpation of the left elbow, but has good flexion and extension. Otherwise she moves all extremities per self without difficulty or deficits, nontender with palpation (besides the left wrist/elbow), negative foot drop, negative for cords or calf pain. Neurovascular unremarkable. Neuro: Awake, alert, oriented. Cranial nerves II through XII unremarkable. Cerebellum unremarkable. Motor and sensory unremarkable throughout. Exam nonfocal. Notes: Patient's physical exam is within normal limits with the exception of pain to her left wrist which she states radiates up into her left elbow. She has no head, neck or back pain. No pelvic discomfort and is able to move her upper and lower extremities otherwise. We did discuss doing further imaging which she declines. Patient declines wanting anything for pain at this time. I did call her daughter, Marly-per patient request, to inform/update of patient ER visit. X-ray shows an impacted distal radius fracture. An ulnar styloid fracture, nondisplaced. She continues to have strong pulses with good cap refill. A fiberglass posterior splint was placed and secured with Hugh wrap. Sling applied with education. Dr Bossman Nelson, orthopedics organic extractions technician, was consulted on this case. Patient is to call his office on Sunday and he will likely see her on Sunday or . Supportive care measures were reviewed and discussed. Voices understanding and is agreeable to plan of care. Denies any further questions or concerns at this time. Diagnostics: Wrist x-ray, elbow x-ray Therapeutics: Fiberglass splint, sling Prescription: Tramadol (#20) Impression: Impacted distal radius fracture, left Ulnar styloid fracture, left Plan: 1. Rest, ice, elevate the affected extremity. Please wear the splint and sling as directed. 2. Tylenol and/or Ibuprofen as needed for pain management. Tramadol for moderate to severe pain. This medication may cause drowsiness; so do NOT take while driving or needing to be functioning outside the house. 3. Follow up with the Orthopedic provider, Call Sunday to set up appointment: . Dr Nelson said he will likely see you on Sunday or . 4. Return to the ED as needed and as discussed. Definitive disposition and diagnosis as appropriate pending reevaluation and review of above. left wrist Pain Score (Numeric/FACES): 10 - Related Data Allergies Allergy/AdvReac Type Severity Reaction Status Date / Time No Known Allergies Allergy Verified 10/31/18 12:29 Home Meds: Home Meds Albuterol/Ipratropium [DuoNeb 3.0-0.5 MG/3 ML] 3 ml INH Q6H PRN 10/31/18 [ History] Budesonide/Formoterol Fumarate [Symbicort 160-4.5 Mcg Inhaler] 2 puff IH BID [History] Calcium Carbonate/Vitamin D3 [Calcium 250+D] 1 each PO DAILY 10/31/18 [History] Cholecalciferol (Vitamin D3) [Vitamin D3] 5,000 unit PO DAILY 10/31/18 [History] Furosemide 40 mg PO BID@0800,1400 10/31/18 [History] Latanoprost 1 drop OP BEDTIME 10/31/18 [History] Metoprolol Succinate 50 mg PO DAILY 10/31/18 [History] OLANZapine [Olanzapine] 5 mg PO BEDTIME 10/31/18 [History] Potassium Chloride [Klor-Con M20] 20 meq PO BIDMEALS 10/31/18 [History] Sertraline [Zoloft] 150 mg PO DAILY 10/31/18 [History] Simvastatin [Zocor] 20 mg PO BEDTIME 10/31/18 [History] Vit A/Vit C/Vit E/Zinc/Copper [Preservision] 1 each PO BID 10/31/18 [History] metFORMIN [Glucophage] 1,000 mg PO BIDMEALS 10/31/18 [History] predniSONE [Prednisone] 2.5 mg PO BIDMEALS 10/31/18 [History] traZODone HCl [Trazodone HCl] 50 mg PO BEDTIME 10/31/18 [History] traMADol [Ultram] 50 mg PO Q4H PRN #20 tab 03/13/20 [Rx] Past Medical History HEENT History: Reports: Impaired Vision Cardiovascular History: Reports: High Cholesterol, Hypertension, SOB on Exertion Respiratory History: Reports: COPD, Other (See Below) Gastrointestinal History: Reports: None Genitourinary History: Reports: Urinary Incontinence 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: Musculoskeletal History: Reports: None Neurological History: Reports: None Psychiatric History: Reports: Depression Endocrine/Metabolic History: Reports: Diabetes, Type II, Obesity/BMI 30+ Hematologic History: Reports: None Immunologic History: Reports: None Oncologic (Cancer) History: Reports: None Dermatologic History: Reports: None - Infectious Disease History Infectious Disease History: Reports: Chicken Pox, Measles - Past Surgical History Head Surgeries/Procedures: Reports: None Female Surgical History: Reports: Hysterectomy Social & Family History - Family History Family Medical History: Noncontributory - Caffeine Use Caffeine Use: Reports: None - Living Situation & Occupation Occupation: Retired Review of Systems - Review of Systems Review Of Systems: Comprehensive ROS is negative, except as noted in HPI. ED EXAM, GENERAL - Physical Exam Exam: See Below (See dictation) Course - Vital Signs Last Recorded V/S: Last Vital Signs Temp 98.0 F 03/13/20 19:03 Pulse 83 03/13/20 19:03 Resp 17 03/13/20 19:03 BP 130/59 L 03/13/20 19:03 Pulse Ox 93 L 03/13/20 19:03 - Orders/Labs/Meds Orders: Active Orders 24 hr Category Date Time Status DME for Discharge [COMM] Stat Oth 03/13/20 20:20 Ordered Departure - Departure Time of Disposition: 20:29 Disposition: Home, Self-Care 01 Clinical Impression: Distal radius fracture, left Qualifiers: Encounter type: initial encounter Fracture type: closed Fracture morphology: other fracture Qualified Code(s): S52.592A - Other fractures of lower end of left radius, initial encounter for closed fracture Fracture of ulnar styloid Qualifiers: Encounter type: initial encounter Fracture type: closed Fracture alignment: nondisplaced Laterality: left Qualified Code(s): S52.615A - Nondisplaced fracture of left ulna styloid process, initial encounter for closed fracture - Discharge Information Prescriptions: traMADol [Ultram] 50 mg PO Q4H PRN #20 tab PRN Reason: Pain Instructions: Wrist Fracture Treated With Immobilization, [id number] Referrals: Willam Hines MD [Primary Care Provider] - Forms: ED Department Discharge Additional Instructions: The following information is given to patients seen in the emergency department who are being discharged to home. This information is to outline your options for follow-up care. We provide all patients seen in our emergency department with a follow-up referral. The need for follow-up, as well as the timing and circumstances, are variable depending upon the specifics of your emergency department visit. If you don't have a primary care physician on staff, we will provide you with a referral. We always advise you to contact your personal physician following an emergency department visit to inform them of the circumstance of the visit and for follow-up with them and/or the need for any referrals to a consulting specialist. The emergency department will also refer you to a specialist when appropriate. This referral assures that you have the opportunity for follow-up care with a specialist. All of these measure are taken in an effort to provide you with optimal care, which includes your follow-up. Under all circumstances we always encourage you to contact your private physician who remains a resource for coordinating your care. When calling for follow-up care, please make the office aware that this follow-up is from your recent emergency room visit. If for any reason you are refused follow-up, please contact the [facility] Emergency Department at and asked to speak to the emergency department charge nurse. [facility] [address], [address] [place] [address] 1. Rest, ice, elevate the affected extremity. Please wear the splint and sling as directed. 2. Tylenol and/or Ibuprofen as needed for pain management. Tramadol for moderate to severe pain. This medication may cause drowsiness; so do NOT take while driving or needing to be functioning outside the house. 3. Follow up with the Orthopedic provider, Call Sunday to set up appointment: . Dr Nelson said he will likely see you on Sunday or . 4. Return to the ED as needed and as discussed. Sepsis Event Note - Focused Exam Vital Signs: Vital Signs Temp Pulse Resp BP Pulse Ox 05/30/20 19:03 98.0 F 83 17 130/59 L 93 L Date Exam was Performed: 03/13/20 Time Exam was Performed: 20:27 - My Orders Last 24 Hours: My Active Orders 03/13/20 20:20 DME for Discharge [COMM] Stat - Assessment/Plan Last 24 Hours: My Active Orders 03/13/20 20:20 DME for Discharge [COMM] Stat
--- NOTE | 2020-03-13 20:14 | CR ---
INDICATION: Fall. Left elbow pain. COMPARISON: None. TECHNIQUE: Left elbow 3 views. FINDINGS: No acute fracture. Alignment is within normal limits. Joint spaces are preserved. Soft tissues are unremarkable. No significant joint effusion. IMPRESSION: No acute osseous abnormality. Dictated by Bossman Neumann MD @ Mar 13 2020 8:12PM Signed by Dr. Bossman Neumann @ Mar 13 2020 8:13PM
--- NOTE | 2020-03-13 20:14 | CR ---
INDICATION: Fall. Left wrist pain. COMPARISON: None. TECHNIQUE: Left wrist 3 views. FINDINGS: Bones are demineralized. Transverse impacted distal radial meta diaphysis fracture. Nondisplaced ulnar styloid fracture. Adjacent ossicle likely sequelae of remote trauma. Moderate degenerative changes affect the 1st CMC and triscaphe joints. IMPRESSION: Impacted distal radius fracture. Ulnar styloid fracture. Dictated by Bossman Neumann MD @ Mar 13 2020 8:09PM Signed by Dr. Bossman Neumann @ Mar 13 2020 8:12PM
[2020-03-13 20:34] VITALS: BP 129/56; PULSE 81
== END 2020-03-13 20:34 | disposition home or self-care (01) ==
LOC: MW.ED 18:52
DX: S52.615A Nondisplaced fracture of left ulna styloid process, initial encounter for closed fracture (principal); S52.502A Unspecified fracture of the lower end of left radius, initial encounter for closed fracture; I10 Essential (primary) hypertension; E78.00 Pure hypercholesterolemia, unspecified; J44.9 Chronic obstructive pulmonary disease, unspecified; E11.9 Type 2 diabetes mellitus without complications; E66.9 Obesity, unspecified; F32.9 Major depressive disorder, single episode, unspecified; Z79.84 Long term (current) use of oral hypoglycemic drugs; Z79.899 Other long term (current) drug therapy; Z68.35 Body mass index [BMI] 35.0-35.9, adult; W01.0XXA Fall on same level from slipping, tripping and stumbling without subsequent striking against object, initial encounter
CPT/HCPCS: 29125; 73080-26-LT; 73080-LT; 73110-26-LT; 73110-LT; 99283; 99284-25

== ENCOUNTER 2022-02-03 15:22 | Inpatient (IN) | payer MEDICARE, BC ==
[2022-02-03] MEDS ORDERED: Sodium Chloride 0.9% 10 ML Syringe FLUSH PRN (15:49)
[2022-02-03] MEDS ORDERED: Sodium Chloride 0.9% 2.5 ML Syringe FLUSH PRN (15:49)
[2022-02-03] MEDS ORDERED: Ondansetron 4 MG/2 ML SDV IVPUSH ONE (15:51)
[2022-02-03] MEDS ORDERED: Morphine 2 MG/ML SYRINGE IVPUSH ONE (15:51)
[2022-02-03 16:50] LABS: CARBON DIOXIDE,CO2 34.3 mmol/L (21.0-32.0); POTASSIUM,K 3.8 mmol/L (3.5-5.1)
[2022-02-03] MEDS ORDERED: Ropivacaine 0.5% 5 MG/ML 30 ML SDV ONE (19:36)
[2022-02-03] MEDS ORDERED: fentaNYL 100 MCG/2 ML SDV ONE (19:40)
[2022-02-03] MEDS ORDERED: Lactated Ringers 1,000 ML IV SCH (23:45)
[2022-02-03] MEDS ORDERED: Lactated Ringers 1,000 ML IV ONE (23:55)
[2022-02-03] MEDS ORDERED: Albuterol/Ipratropium 3.0-0.5 MG/3 ML Neb Soln NEB PRN (23:55)
[2022-02-04 06:31] LABS: BLOOD UREA NITROGEN,BUN 13 mg/dL (7.0-18.0); CARBON DIOXIDE,CO2 36.3 mmol/L (21.0-32.0); CHLORIDE,CL 103 mmol/L (98-107); GLUCOSE RANDOM 104 mg/dL (74-106); POTASSIUM,K 3.9 mmol/L (3.5-5.1); SODIUM,NA 142 mmol/L (136-145)
[2022-02-04] MEDS: Pantoprazole 40 MG in Sodium Chloride 0.9% 10 ML IVPUSH SCH (09:05)
[2022-02-04] MEDS: Heparin Sodium 5,000 Units/ML Vial SUBCUT SCH ×2 (09:09→17:13)
[2022-02-04] MEDS: predniSONE 5 MG Tab PO SCH ×2 (09:11→17:14)
[2022-02-04] MEDS: Calcium Carbonate/Vitamin D3 1500 MG-400 Units Tab PO SCH (09:11)
[2022-02-04] MEDS: Sertraline 100 MG Tab PO SCH (09:12)
[2022-02-04] MEDS: Acetaminophen 325 MG Tab PO PRN (09:12)
[2022-02-04] MEDS: Cholecalciferol (Vitamin D3) 25 MCG Tab PO SCH (09:14)
[2022-02-04] MEDS: Morphine 2 MG/ML SYRINGE IVPUSH PRN ×2 (12:07→17:14)
[2022-02-04] MEDS ORDERED: Magnesium Sulfate/Water 2 GM in Premix Bag 1 BAG IV ONE (12:16)
[2022-02-04] MEDS: OLANZapine 5 MG Tab PO SCH (23:07)
[2022-02-04] MEDS: Simvastatin 20 MG Tab PO SCH (23:07)
[2022-02-04] MEDS: Latanoprost 0.005% Ophth Soln 2.5 ML Bottle EYEBOTH SCH (23:08)
[2022-02-05] MEDS: Heparin Sodium 5,000 Units/ML Vial SUBCUT SCH ×3 (01:16→16:21)
[2022-02-05] MEDS: Morphine 2 MG/ML SYRINGE IVPUSH PRN ×2 (01:31→10:32)
[2022-02-05] MEDS ORDERED: Glucagon,Human Recombinant 1 MG Vial IM PRN (03:24)
[2022-02-05] MEDS ORDERED: 50% Dextrose in Water 50 ML Syringe IVPUSH PRN (03:24)
[2022-02-05 06:48] LABS: BLOOD UREA NITROGEN,BUN 16 mg/dL (7.0-18.0); CARBON DIOXIDE,CO2 35.9 mmol/L (21.0-32.0); CHLORIDE,CL 101 mmol/L (98-107); GLUCOSE RANDOM 124 mg/dL (74-106); POTASSIUM,K 3.5 mmol/L (3.5-5.1); SODIUM,NA 139 mmol/L (136-145)
[2022-02-05] MEDS: Insulin Aspart 100 Units/ML 3 ML Pen SUBCUT SCH ×3 (08:13→17:19)
[2022-02-05] MEDS: Calcium Carbonate/Vitamin D3 1500 MG-400 Units Tab PO SCH (09:04)
[2022-02-05] MEDS: Sertraline 100 MG Tab PO SCH (09:06)
[2022-02-05] MEDS: predniSONE 5 MG Tab PO SCH ×2 (09:07→16:21)
[2022-02-05] MEDS: Pantoprazole 40 MG in Sodium Chloride 0.9% 10 ML IVPUSH SCH (09:08)
[2022-02-05] MEDS: Cholecalciferol (Vitamin D3) 25 MCG Tab PO SCH (09:14)
[2022-02-05] MEDS: Acetaminophen 325 MG Tab PO PRN ×2 (09:29→16:22)
[2022-02-05] MEDS: Simvastatin 20 MG Tab PO SCH (22:35)
[2022-02-05] MEDS: OLANZapine 5 MG Tab PO SCH (22:35)
[2022-02-05] MEDS: Latanoprost 0.005% Ophth Soln 2.5 ML Bottle EYEBOTH SCH (22:36)
[2022-02-06] MEDS: Heparin Sodium 5,000 Units/ML Vial SUBCUT SCH ×2 (01:06→08:26)
[2022-02-06 07:12] LABS: BLOOD UREA NITROGEN,BUN 14 mg/dL (7.0-18.0); CARBON DIOXIDE,CO2 36.3 mmol/L (21.0-32.0); CHLORIDE,CL 102 mmol/L (98-107); GLUCOSE RANDOM 124 mg/dL (74-106); POTASSIUM,K 3.1 mmol/L (3.5-5.1); SODIUM,NA 140 mmol/L (136-145)
[2022-02-06] MEDS: Insulin Aspart 100 Units/ML 3 ML Pen SUBCUT SCH (08:22)
[2022-02-06] MEDS: Cholecalciferol (Vitamin D3) 25 MCG Tab PO SCH (08:23)
[2022-02-06] MEDS: predniSONE 5 MG Tab PO SCH (08:24)
[2022-02-06] MEDS: Calcium Carbonate/Vitamin D3 1500 MG-400 Units Tab PO SCH (08:25)
[2022-02-06] MEDS: Sertraline 100 MG Tab PO SCH (08:25)
[2022-02-06] MEDS: Pantoprazole 40 MG in Sodium Chloride 0.9% 10 ML IVPUSH SCH (08:26)
[2022-02-06] MEDS ORDERED: Potassium Chloride 20 MEQ Tab.ER PO ONE (08:45)
[2022-02-06] MEDS: Acetaminophen 325 MG Tab PO PRN (13:11)
[2022-02-06 14:25] VITALS: BP 157/70; PULSE 110
== END 2022-02-06 13:15 | DRG 563 ==
LOC: MW.ED 15:22 → MW.SDS 20:24 → MW.MS 21:08 → MW.SDS 22:30 → MW.MS 02-04 07:19
PROVIDERS: ADMIT Student in an Organized Health Care Education/Training Program; ATTEND Orthopaedic Surgery
PROC: 0PSJXZZ Reposition Left Radius, External Approach (ICD-10-PCS; principal; 2022-02-03)
PROC: 0PSLXZZ Reposition Left Ulna, External Approach (ICD-10-PCS; 2022-02-03)
DX: S52.592A Other fractures of lower end of left radius, initial encounter for closed fracture (principal); S52.602A Unspecified fracture of lower end of left ulna, initial encounter for closed fracture; S22.49XA Multiple fractures of ribs, unspecified side, initial encounter for closed fracture; S22.41XA Multiple fractures of ribs, right side, initial encounter for closed fracture; H54.7 Unspecified visual loss; S52.502A Unspecified fracture of the lower end of left radius, initial encounter for closed fracture; I10 Essential (primary) hypertension; R77.8 Other specified abnormalities of plasma proteins; R32 Unspecified urinary incontinence; R26.2 Difficulty in walking, not elsewhere classified; I50.9 Heart failure, unspecified; J44.9 Chronic obstructive pulmonary disease, unspecified; Z79.51 Long term (current) use of inhaled steroids; Z79.52 Long term (current) use of systemic steroids; E11.9 Type 2 diabetes mellitus without complications; F32.A Depression, unspecified; E78.5 Hyperlipidemia, unspecified; I11.0 Hypertensive heart disease with heart failure; E78.00 Pure hypercholesterolemia, unspecified; E66.9 Obesity, unspecified; Z90.710 Acquired absence of both cervix and uterus; Z99.81 Dependence on supplemental oxygen; Z79.84 Long term (current) use of oral hypoglycemic drugs; Z79.899 Other long term (current) drug therapy; Z68.33 Body mass index [BMI] 33.0-33.9, adult; W19.XXXA Unspecified fall, initial encounter; Y93.89 Activity, other specified; Y92.89 Other specified places as the place of occurrence of the external cause; Y99.8 Other external cause status
CPT/HCPCS: 25565; 36415; 70450; 71250; 72125; 72170; 73090; 73560; 73590; 76000; 80053; 81003; 82550; 84484 ×2; 85025; 93005; J2270; J2405; J2795; J3010; J3490; 01820; 80048; 82947; 83735; 84100; 99100; 99284; A9270-GY; C9113; J1644; J1815-GY; J3475; J7120; J7512; J7620-GY

== ENCOUNTER 2023-01-31 11:58 | Emergency (ER) | payer MEDICARE, BC ==
[2023-01-31] MEDS ORDERED: Ibuprofen 800 MG Tab PO STA (12:22)
[2023-01-31] MEDS ORDERED: Acetaminophen 500 MG Tab PO STA (12:22)
[2023-01-31] MEDS ORDERED: oxyCODONE 5 MG Tab PO STA (12:23)
[2023-01-31] MEDS ORDERED: Lidocaine 5% 700 MG Patch TRDERM STA (14:11)
[2023-01-31 16:15] VITALS: BP 103/45; PULSE 82
== END 2023-01-31 16:08 ==
LOC: MW.ED 11:58
DX: S42.202A Unspecified fracture of upper end of left humerus, initial encounter for closed fracture (principal); J44.9 Chronic obstructive pulmonary disease, unspecified; E11.9 Type 2 diabetes mellitus without complications; E78.5 Hyperlipidemia, unspecified; E66.9 Obesity, unspecified; Z68.30 Body mass index [BMI] 30.0-30.9, adult; Z79.899 Other long term (current) drug therapy; W17.89XA Other fall from one level to another, initial encounter
CPT/HCPCS: 70450; 73030; 73060; 73070; 73110; 73130; 99284; A9270

== ENCOUNTER 2024-03-17 10:21 | Inpatient (IN) | payer MEDICARE, MEDICAID ==
[2024-03-17 11:31] LABS: HEMOGLOBIN 12.2 g/dL (12.0-16.0); MEAN CORPUSCULAR HEMOGLOBIN 30.7 pg (28.0-32.0); PLATELET COUNT,PLT 277 K/uL (150-400); RED BLOOD CELL COUNT 3.98 M/uL (4.10-5.30)
[2024-03-17 11:59] LABS: A/G RATIO 0.8 (0.9-1.6); ALBUMIN 2.7 g/dL (3.4-5.0); BILIRUBIN TOTAL 0.7 mg/dL (0.2-1.0); CALCIUM 8.3 mg/dL (8.5-10.1); CARBON DIOXIDE,CO2 27.3 mmol/L (21.0-32.0); CREATININE 0.9 mg/dL (0.6-1.0); EST CRCL DRUG DOSING (CG) 39.63 mL/min; POTASSIUM,K 4.2 mmol/L (3.5-5.1); PROTEIN TOTAL,TP 6.1 g/dL (6.4-8.2)
[2024-03-17 12:00] LABS: BAND ABSOLUTE MAN 0.33; BAND PERCENT MAN 1 %; SEG NEUTROPHILS ABSOLUTE MAN 30.69 K/uL (1.80-7.70); SEG NEUTROPHILS PERCENT MAN 93 % (41-71)
[2024-03-17 12:01] LABS: LYMPHOCYTES ABSOLUTE MAN 0.66 K/uL (1.00-4.80); LYMPHOCYTES PERCENT MAN 2 % (24-44); MONOCYTES ABSOLUTE MAN 1.32 K/uL (0.00-0.80); MONOCYTES PERCENT MAN 4 % (0-8)
[2024-03-17] MEDS: Piperacillin/Tazobactam 4.5 GM in Sodium Chloride 0.9% 100 ML IV ONE (12:16)
[2024-03-17 12:18] LABS: APPEARANCE,URINE CLEAR; BILIRUBIN,URINE NEGATIVE (NEGATIVE); COLOR,URINE YELLOW; GLUCOSE,URINE NEGATIVE (NEGATIVE); KETONES,URINE NEGATIVE (NEGATIVE); LEUKOCYTE ESTERASE,URINE NEGATIVE (NEGATIVE); NITRITE,URINE POSITIVE (NEGATIVE); OCCULT BLOOD,URINE SMALL (NEGATIVE); PROTEIN,URINE NEGATIVE (NEGATIVE)
[2024-03-17] MEDS: Sodium Chloride 0.9% 10 ML Syringe FLUSH PRN (12:18)
[2024-03-17] MEDS: Sodium Chloride 0.9% 2.5 ML Syringe FLUSH PRN (12:18)
[2024-03-17 12:48] LABS: LACTIC ACID 1.2 mmol/L (0.4-2.0)
[2024-03-17] MEDS: Iopamidol 755 MG/ML 500 ML Multipack Bottle IVPUSH STA (12:50)
[2024-03-17] MEDS: Acetaminophen 500 MG Tab PO ONE (13:03)
[2024-03-17] MEDS: VANCOmycin 1.75 GM/350 ML 1.75 GM in Premix Bag 1 BAG IV ONE (13:04)
[2024-03-17 13:05] LABS: CORONAVIRUS COVID-19 NAA NEGATIVE (NEGATIVE); INFLUENZA A NAA NEGATIVE (NEGATIVE); INFLUENZA B NAA NEGATIVE (NEGATIVE)
[2024-03-17] MEDS: Sodium Chloride 0.9% 1,000 ML IV ONE (13:05)
[2024-03-17 13:06] LABS: BACTERIA,URINE FEW (NEGATIVE); EPITHELIAL CELLS,URINE FEW (NONE-FEW); WBC,URINE 0-1 (0-5/HPF)
[2024-03-17] MEDS ORDERED: 50% Dextrose in Water 50 ML Syringe IVPUSH PRN (15:04)
[2024-03-17] MEDS ORDERED: Glucagon,Human Recombinant 1 MG Vial IM PRN (15:04)
[2024-03-17] MEDS: Insulin Aspart 100 Units/ML 3 ML Pen SUBCUT SCH (17:20)
[2024-03-17] MEDS: Piperacillin/Tazobactam 3.375 GM in Sodium Chloride 0.9% 100 ML IV SCH (17:24)
[2024-03-17] MEDS ORDERED: traZODone 50 MG Tab PO SCH (21:00)
[2024-03-17] MEDS: Formoterol/Mometasone 200-5 MCG 8.8 GM Inhaler INH SCH (21:19)
[2024-03-17] MEDS: predniSONE 5 MG Tab PO SCH (21:20)
[2024-03-17] MEDS: atorvaSTATin 10 MG Tab PO SCH (21:20)
[2024-03-18] MEDS: Metoprolol Succinate 50 MG Tab.ER PO SCH (08:04)
[2024-03-18] MEDS: Sertraline 50 MG Tab PO SCH (08:04)
[2024-03-18 08:10] LABS: A/G RATIO 0.8 (0.9-1.6); ALBUMIN 2.6 g/dL (3.4-5.0); BILIRUBIN TOTAL 0.5 mg/dL (0.2-1.0); CALCIUM 8.1 mg/dL (8.5-10.1); CARBON DIOXIDE,CO2 23.7 mmol/L (21.0-32.0); EST CRCL DRUG DOSING (CG) 35.66 mL/min; PROTEIN TOTAL,TP 5.9 g/dL (6.4-8.2)
[2024-03-18 08:16] LABS: BASOPHILS ABSOLUTE AUTO 0.06 K/uL (0.00-0.20); BASOPHILS PERCENT AUTO 0.3 % (0.0-1.0); EOSINOPHILS ABSOLUTE AUTO 0.07 K/uL (0.00-0.45); EOSINOPHILS PERCENT AUTO 0.4 % (0.0-6.0); HEMATOCRIT 35.1 % (37.0-47.0); HEMOGLOBIN 11.4 g/dL (12.0-16.0); IMMATURE GRAN ABSOLUTE AUTO 0.14 K/uL (0.00-0.05); IMMATURE GRAN PERCENT AUTO 0.7 % (0.0-0.4); LYMPHOCYTES ABSOLUTE AUTO 0.93 K/uL (1.00-4.80); LYMPHOCYTES PERCENT AUTO 4.7 % (24.0-44.0); MEAN CORPUSCULAR HEMOGLOBIN 31.3 pg (28.0-32.0); MEAN CORPUSCULAR HGB CONC 32.5 g/dL (32.0-36.0); MEAN CORPUSCULAR VOLUME 96.4 fL (83.0-99.0); MEAN PLATELET VOLUME 9.4 fL (9.4-12.3); MONOCYTES ABSOLUTE AUTO 1.11 K/uL (0.00-0.80); MONOCYTES PERCENT AUTO 5.6 % (0.0-8.0); NEUTROPHILS ABSOLUTE AUTO 17.66 K/uL (1.80-7.70); NEUTROPHILS PERCENT AUTO 88.3 % (41.0-71.0); PLATELET COUNT,PLT 246 K/uL (150-400); RED BLOOD CELL COUNT 3.64 M/uL (4.10-5.30); WHITE BLOOD CELL COUNT,WBC 19.97 K/uL (3.9-11.3)
[2024-03-18] MEDS: Brimonidine 0.2% Ophth Soln 5 ML Bottle EYERT SCH (11:43)
[2024-03-18] MEDS: Pantoprazole 40 MG Tab.CR PO SCH (11:43)
[2024-03-18] MEDS: Heparin Sodium 5,000 Units/ML Vial SUBCUT SCH (11:43)
[2024-03-18] MEDS: Piperacillin/Tazobactam 4.5 GM in Sodium Chloride 0.9% 100 ML IV SCH (11:45)
[2024-03-18] MEDS: Non-Formulary Medication 1 Each (Pantoprazole 20 MG Tab.Dr) PO SCH (12:46)
[2024-03-18] MEDS: Acetaminophen 325 MG Tab PO PRN (12:50)
[2024-03-19 06:15] LABS: BASOPHILS ABSOLUTE AUTO 0.04 K/uL (0.00-0.20); BASOPHILS PERCENT AUTO 0.3 % (0.0-1.0); EOSINOPHILS ABSOLUTE AUTO 0.09 K/uL (0.00-0.45); EOSINOPHILS PERCENT AUTO 0.6 % (0.0-6.0); HEMATOCRIT 31.8 % (37.0-47.0); HEMOGLOBIN 10.3 g/dL (12.0-16.0); IMMATURE GRAN ABSOLUTE AUTO 0.12 K/uL (0.00-0.05); IMMATURE GRAN PERCENT AUTO 0.8 % (0.0-0.4); LYMPHOCYTES ABSOLUTE AUTO 1.18 K/uL (1.00-4.80); LYMPHOCYTES PERCENT AUTO 8.3 % (24.0-44.0); MEAN CORPUSCULAR HEMOGLOBIN 30.7 pg (28.0-32.0); MEAN CORPUSCULAR HGB CONC 32.4 g/dL (32.0-36.0); MEAN CORPUSCULAR VOLUME 94.6 fL (83.0-99.0); MEAN PLATELET VOLUME 9.3 fL (9.4-12.3); MONOCYTES ABSOLUTE AUTO 0.71 K/uL (0.00-0.80); NEUTROPHILS ABSOLUTE AUTO 12.02 K/uL (1.80-7.70); PLATELET COUNT,PLT 264 K/uL (150-400); RED BLOOD CELL COUNT 3.36 M/uL (4.10-5.30); WHITE BLOOD CELL COUNT,WBC 14.16 K/uL (3.9-11.3)
[2024-03-19 06:34] LABS: CALCIUM 8.1 mg/dL (8.5-10.1); CARBON DIOXIDE,CO2 26.6 mmol/L (21.0-32.0); CREATININE 0.8 mg/dL (0.6-1.0); EST CRCL DRUG DOSING (CG) 44.58 mL/min; MAGNESIUM 1.8 mg/dL (1.8-2.4); POTASSIUM,K 3.8 mmol/L (3.5-5.1)
[2024-03-19] MEDS: Sertraline 100 MG Tab PO SCH (10:16)
[2024-03-20 05:59] LABS: BASOPHILS ABSOLUTE AUTO 0.06 K/uL (0.00-0.20); BASOPHILS PERCENT AUTO 0.5 % (0.0-1.0); EOSINOPHILS ABSOLUTE AUTO 0.12 K/uL (0.00-0.45); EOSINOPHILS PERCENT AUTO 1.1 % (0.0-6.0); HEMATOCRIT 32.9 % (37.0-47.0); HEMOGLOBIN 10.7 g/dL (12.0-16.0); IMMATURE GRAN ABSOLUTE AUTO 0.08 K/uL (0.00-0.05); IMMATURE GRAN PERCENT AUTO 0.7 % (0.0-0.4); LYMPHOCYTES PERCENT AUTO 11.6 % (24.0-44.0); MEAN CORPUSCULAR HEMOGLOBIN 30.3 pg (28.0-32.0); MEAN CORPUSCULAR HGB CONC 32.5 g/dL (32.0-36.0); MEAN CORPUSCULAR VOLUME 93.2 fL (83.0-99.0); MEAN PLATELET VOLUME 9.4 fL (9.4-12.3); MONOCYTES ABSOLUTE AUTO 0.68 K/uL (0.00-0.80); MONOCYTES PERCENT AUTO 6.1 % (0.0-8.0); NEUTROPHILS ABSOLUTE AUTO 8.98 K/uL (1.80-7.70); PLATELET COUNT,PLT 303 K/uL (150-400); RED BLOOD CELL COUNT 3.53 M/uL (4.10-5.30); WHITE BLOOD CELL COUNT,WBC 11.22 K/uL (3.9-11.3)
[2024-03-20 06:15] LABS: CALCIUM 8.6 mg/dL (8.5-10.1); CARBON DIOXIDE,CO2 28.4 mmol/L (21.0-32.0); CREATININE 0.8 mg/dL (0.6-1.0); EST CRCL DRUG DOSING (CG) 44.58 mL/min; POTASSIUM,K 4.1 mmol/L (3.5-5.1)
[2024-03-20 12:26] VITALS: BP 135/65; PULSE 80
== END 2024-03-20 12:47 | DRG 872 ==
LOC: MW.ED 10:21 → MW.MS 13:22
PROVIDERS: ADMIT Internal Medicine; ATTEND Internal Medicine
DX: A41.9 Sepsis, unspecified organism (principal); N30.00 Acute cystitis without hematuria; J44.9 Chronic obstructive pulmonary disease, unspecified; Z66 Do not resuscitate; R65.20 Severe sepsis without septic shock; E11.9 Type 2 diabetes mellitus without complications; E66.9 Obesity, unspecified; Z79.84 Long term (current) use of oral hypoglycemic drugs; Z79.899 Other long term (current) drug therapy; E78.00 Pure hypercholesterolemia, unspecified; F32.A Depression, unspecified; I10 Essential (primary) hypertension; Z79.4 Long term (current) use of insulin; Z90.710 Acquired absence of both cervix and uterus
CPT/HCPCS: 0240U; 36415; 71045; 71045-26; 74177; 74177-26; 80048; 80053; 80202; 81001; 82947; 83605; 83690; 83735; 84484; 85025; 87040; 87086; 93005; 93010; 96365; 96367; 99222; 99232; 99239; 99285; 99285-25; A9270-GY; J1644; J1815-GY; J2543; J3370; J3490; J7030; J7050; J7512; Q9967